=== PATIENT | female | born 1965 | race Caucasian/White ===

== ENCOUNTER → 2019-12-15 09:54 | Outpatient (BNVA) | payer MEDICAID, SELFPAY | PROVIDERS: Family Provider Family Medicine; PCP Family Medicine; Visit Provider Family Medicine | DX: J44.9 Chronic obstructive pulmonary disease, unspecified (principal); J06.9 Acute upper respiratory infection, unspecified; I10 Essential (primary) hypertension; J30.89 Other allergic rhinitis; E87.5 Hyperkalemia | CPT/HCPCS: 36415; 80048; 82652 ==

== ENCOUNTER → 2019-12-16 16:42 | Outpatient (BNVA) | payer MEDICAID, SELFPAY | PROVIDERS: Family Provider Family Medicine; PCP Family Medicine; Visit Provider Family Medicine | DX: E83.52 Hypercalcemia (principal) | CPT/HCPCS: 80048 ==

== ENCOUNTER → 2020-02-16 11:36 | Outpatient (BNVA) | payer MEDICAID, SELFPAY | PROVIDERS: Family Provider Family Medicine; PCP Family Medicine; Visit Provider Nurse Practitioner Family | DX: R07.81 Pleurodynia (principal) | CPT/HCPCS: 71046; 71047 ==

== ENCOUNTER → 2020-04-12 12:03 | Outpatient (BNVA) | payer MEDICAID, SELFPAY | PROVIDERS: Family Provider Family Medicine; PCP Family Medicine; Visit Provider Family Medicine | DX: J44.9 Chronic obstructive pulmonary disease, unspecified (principal); M54.16 Radiculopathy, lumbar region; G89.29 Other chronic pain; I10 Essential (primary) hypertension; E78.2 Mixed hyperlipidemia | CPT/HCPCS: 80048; 80061; 83721; 85025 ==

== ENCOUNTER → 2020-05-20 09:58 | Outpatient (BNVA) | payer MEDICAID, SELFPAY | PROVIDERS: Family Provider Family Medicine; PCP Family Medicine; Referring Provider Family Medicine; Visit Provider Family Medicine | DX: Z03.89 Encounter for observation for other suspected diseases and conditions ruled out (principal) | CPT/HCPCS: 82607; 83036; 84443 ==

== ENCOUNTER → 2020-06-07 08:57 | Outpatient (BNVA) | payer MEDICAID, SELFPAY | PROVIDERS: Family Provider Family Medicine; PCP Family Medicine; Visit Provider Family Medicine | DX: J44.1 Chronic obstructive pulmonary disease with (acute) exacerbation (principal); E11.9 Type 2 diabetes mellitus without complications | CPT/HCPCS: 71046 ==

== ENCOUNTER → 2020-09-06 11:59 | Outpatient (BNVA) | payer MEDICAID, SELFPAY | PROVIDERS: Family Provider Family Medicine; PCP Family Medicine; Visit Provider Nurse Practitioner Family | DX: Z20.828 Contact with and (suspected) exposure to other viral communicable diseases (principal) | CPT/HCPCS: 87400; 87635 ==

== ENCOUNTER → 2020-09-16 10:23 | Outpatient (BNVA) | payer MEDICAID, SELFPAY | PROVIDERS: Family Provider Family Medicine; PCP Family Medicine; Visit Provider Emergency Medicine | DX: Z11.59 Encounter for screening for other viral diseases (principal) | CPT/HCPCS: 87635 ==

== ENCOUNTER 2020-09-17 11:26 | Emergency (ER) | payer MEDICAID, SELFPAY ==
[2020-09-17 11:46] VITALS: BP 122/69; PULSE 81; RESP 18; TEMP 36.9; O2SAT 98; BMI 29.3
--- NOTE | 2020-09-17 12:29 | CTR_ITS ---
PROCEDURE INFORMATION: Exam: CT Neck With Contrast Exam date and time: 09/17/2020 1:24 PM Age: 54 years old Clinical indication: Pain; Other: Left side face / neck; Additional info: Left face swelling with feeling of swelling in throat TECHNIQUE: Imaging protocol: Computed tomography images of the neck with intravenous contrast. Radiation optimization: All CT scans at this facility use at least one of these dose optimization techniques: automated exposure control; mA and/or kV adjustment per patient size (includes targeted exams where dose is matched to clinical indication); or iterative reconstruction. Contrast material: OMNI 300; Contrast volume: 95 ml; Contrast route: INTRAVENOUS (IV); COMPARISON: CT Cervical Spine wo* [id number] 02/13/2019 6:21 PM RADIATION DOSE METRICS: Total DLP (mGy-cm): 650.56 FINDINGS: Paranasal sinuses: No fluid levels in the paranasal sinuses, minimal inflammatory change in the left maxillary sinus. Nasopharynx: Unremarkable. Oropharynx: Unremarkable. No significant tonsillar enlargement. Hypopharynx: Unremarkable. Larynx: Unremarkable. Normal epiglottis. Retropharyngeal space: Unremarkable. Submandibular/Parotid glands: Normal. Glands are normal in size. Thyroid: Normal. No enlarged or calcified nodules. Lymph nodes: No significant adenopathy. Trachea: Visualized trachea is unremarkable. Lungs: Minimal emphysematous change in the upper lungs. Bones/joints: Unremarkable. No acute fracture. Soft tissues: Left periorbital, facial and left scalp edema/inflammation, no subcutaneous air/gas. Fluid collection estimated at approximately 1 x 4 cm in the left frontal supraorbital region, smaller fluid collection is seen the soft tissues at the level of the lower portion of the left orbit CT/CT neck w con* [id number] IMPRESSION: Left periorbital/supraorbital abscess, cellulitis. Radiation Dose CTDIVOL = (mGy): DLP = 650.56 (mGy-cm)
--- NOTE | 2020-09-17 12:31 | W.ED.GENADLT ---
HPI - General Adult General: Chief complaint: General Medical Stated complaint: Face Swelling Time Seen by Provider: 09/17/20 12:02 History of Present Illness: HPI narrative: Patient is a 54-year-old female comes in the ED with left facial swelling. Patient says the swelling started yesterday. She was seen by PCP Alfredito Vázquez yesterday and diagnosed with herpes zoster of left side of face along with possible secondary cellulitis. Patient was given a prescription for valacyclovir and Bactrim. She says today her facial swelling is worse and her eyes swollen shut. She says that she feels pain and feels like there is something in her throat. Denies any shortness of breath or problems breathing. She says left side of face is very painful. She rates pain a 10 out of 10. Associated symptoms: Reports rash (Rash on left christian); Deny chest pain, dyspnea, headache(s), nausea, palpitations or vomiting Review of Systems Const: Denies: fever(s), chills or fatigue Eyes: Reports: other (Left periorbital swelling of upper and lower eyelid.); Denies: change in vision or eye discomfort ENMT: Reports: odynophagia (Patient says she feels some pain when she swallows and does have some pain as well.); Denies: throat pain, nasal discharge or nasal congestion Card: Denies: chest pain, palpitations, edema, swelling of feet/ankles, dyspnea on exertion or orthopnea Resp: Denies: dyspnea, productive cough or non-productive cough GI: Denies: abdominal pain, nausea, vomiting, diarrhea, constipation or hematochezia : Denies: flank pain, dysuria or hematuria Musc: Denies: neck pain, back pain or extremity swelling Skin/Breast: Reports: rash (Rash on left christian), pruritus and skin swelling (Left side of face especially periorbital region of left eye.) Neuro: Denies: headache(s), numbness in extremities or weakness in extremities [facility] PFSH: Medical History Acute depression Alcohol dependence, in remission Allergic rhinitis Bipolar disorder, current episode depressed, mild Borderline personality disorder Chronic pain Chronic post-traumatic stress disorder Chronic radicular low back pain COPD, mild Diabetes Essential hypertension GERD (gastroesophageal reflux disease) Mixed hyperlipidemia Surgical History H/O tubal ligation H/O: hysterectomy S/P cholecystectomy Family History Sister Hypertension Cancer Family/Other Cancer Social History Smoking and tobacco status: current every day smoker cigarettes Packs smoked per day: 1 Second hand smoke exposure: No Alcohol intake: current Alcohol intake frequency: holidays/special occasions only Physical Exam Const: COMMON NORMALS: patient oriented x3 and alert HENMT: COMMON NORMALS: normocephalic HEAD & SCALP: normocephalic MOUTH: Normal oral and palatal mucosa present THROAT: posterior oropharynx normal and uvula midline OTHER: Patient has a erythemic rash on left christian region of head. Eye: COMMON NORMALS: Equal, round and reactive pupils present and EOMs intact bilaterally EYELID: eyelid abnormality left upper eyelid swelling and tenderness and left lower eyelid swelling and tenderness PUPIL: Yes Equal, round and reactive pupils present SLIT LAMP EXAM: Yes slit lamp exam performed with fluorescein OTHER: Right eye has normal appearance. Left eye both upper and lower lids are swollen. After patient was given a dose of steroids her swelling of the left eye went down no was able to perform these fluorescein exam with lamp. Some dendritic lesions are seen upon fluorescein exam with lamp. Neck/C-Spine: COMMON NORMALS: supple GENERAL: Yes normal visual inspection Resp: COMMON NORMALS: normal respiratory effort, No retractions, No use of accessory muscles and clear to auscultation bilaterally AUSCULTATION: clear to auscultation bilaterally Cardio: COMMON NORMALS: regular rate, regular rhythm, S1 normal heart sound present, S2 normal heart sound present, No gallops present (Cardio), No clicks present (Cardio), No murmurs present (Cardio) and Peripheral pulses 2+ throughout RATE: regular rate RHYTHM: regular rhythm HEART SOUNDS: S1 normal heart sound present and S2 normal heart sound present PERIPHERAL PULSES: Peripheral pulses 2+ throughout GI: COMMON NORMALS: Normal to inspection, nondistended, normoactive bowel sounds present, Soft to palpation, non-tender and no masses PALPATION: Yes Soft to palpation : COMMON NORMALS: Yes no CVA tenderness BLADDER/KIDNEY EXAM: Yes no CVA tenderness Back/Pelvis: COMMON NORMALS: no CVA tenderness Extremity: COMMON NORMALS: normal to inspection Neuro: COMMON NORMALS: patient oriented x3 and moves all extremities SENSORIUM/ORIENTATION: Yes alert Skin: GENERAL SKIN EXAM: dry skin RASHES: rashes noted Left side of face Rash distribution: Yes dermatomal Rash color: Yes erythematous Rash surface: Yes dry and Yes warm Rash tenderness: Yes severe Rash findings consistent with: Yes herpes zoster Course Reevaluation(s): Reevaluation #1: After steroids were given patient's swelling of the left eye improved enough for me to perform a fluorescein exam with lamp. I was able to visualize some dendritic lesions on eye for exam. Patient also said that with her decreased swelling of left eye her pain improved greatly. Vital Signs: Vital signs: Vital Signs Temperature 98.5 F 09/17/20 11:46 Pulse Rate 77 09/17/20 16:26 Respiratory Rate 16 09/17/20 16:26 Blood Pressure 113/60 09/17/20 16:26 Pulse Oximetry 94 09/17/20 16:26 MDM - General Adult MDM Narrative: Medical decision making narrative: Patient is a 54-year-old female comes to the ED with left facial swelling. Patient was seen at her primary care doctor yesterday and was diagnosed with herpes zoster rash on left christian along with cellulitis. She was sent home with prescription for valacyclovir and Bactrim. She took first dose of both meds and woke up today and had periorbital swelling, and was instructed to come to the ED if she started having symptoms that involved the left eye. Exam showed patient with periorbital swelling of the left eye and upon arrival I was unable to examine left eyeball due to the swelling of the eyelids. Patient was then given a dose of steroids here in the ED and swelling improved enough for me to do fluorescein lamp exam. I was able to identify some dendritic lesions on the eye. I also ordered CT neck with contrast to check for any airway involvement because patient says she can feel something in her throat and has some pain when she swallows. CT findings showed left periorbital cellulitis. Patient diagnosed with cellulitis and herpes zoster with ocular involvement. She was told to continue taking her valacyclovir and Bactrim. I also prescribed for her some oral prednisone and steroid eyedrops. I told her to contact Dr. [facility] here in [place] on Sunday morning to set up an appointment for reevaluation. Return to ED precautions given. Patient understood and agree with plan. Lab Data: Attestation: I reviewed the patient's lab results. Labs: Lab Results 09/17/20 09/17/20 Range/Units 12:32 12:32 WBC 7.2 (4.0-10.0) 10^3/ uL RBC 4.62 (4.1-5.3) 10^6/u L Hgb 13.7 (11.5-15.3) g/dL Hct 42.4 (37.0-47.0) % MCV 91.8 (81-99) fL MCH 29.7 (28.0-34.0) pg MCHC 32.3 (30.0-36.0) g/dL RDW 12.0 L (12.1-15.1) % Plt Count 211 (130-400) 10^3/c mm MPV 9.8 (7.4-10.4) fL Neut % (Auto) 73.2 % Lymph % (Auto) 16.8 % Hayes % (Auto) 8.1 % Eos % (Auto) 1.5 % Baso % (Auto) 0.3 % Neut # (Auto) 5.27 (1.8-7.7) 10^3/u L Lymph # (Auto) 1.2 (0.8-4.8) 10^3/u L Hayes # (Auto) 0.6 (0.2-0.9) 10^3/u L Eos # (Auto) 0.1 (0.0-0.8) 10^3/u L Baso # (Auto) 0.0 (0.0-0.1) 10^3/u L Nucleated RBC % (a uto) 0 % Nucleated RBCs # 0.0 /100WBC Sodium 139 (136-145) mmol/L Potassium 4.3 (3.5-5.1) mmol/L Chloride 103 (98-107) mmol/L Carbon Dioxide 28 (22-29) mmol/L Anion Gap 12.3 (5-19) BUN 11 (6-20) mg/dL Creatinine 0.7 (0.5-0.9) mg/dL GFR Calculation 86.9 L (90-130) mL/min Glucose 112 (65-115) mg/dL Calculated Osmolal ity 288 (285-295) mOsm/k g Calcium 9.4 (8.5-10.5) mg/dL Total Bilirubin 0.2 (0.15-1.2) mg/dL AST 15 (0-32) U/L ALT 27 (0-33) U/L Alkaline Phosphata se 73 (35-105) IU/L Total Protein 6.8 (6.6-8.7) g/dL Albumin 4.1 (3.5-5.2) g/dL Globulin 2.7 (1.3-4.6) g/dL Imaging Data^: Other CT: Attestation: I personally reviewed and interpreted this imaging study as follows: Radiologist's impression: [address] [address] [address] Scan Report Signed Patient: Melvi Jeronimo Unit #: [id number] : 1965 Age/Sex: 54 / F ADM Date: 09/17/20 Loc: ER Room/Bed: Attending Dr: Ordering Provider/Ordering MD: Dilan Garcia Date of Service: 09/17/20 Procedure(s): CT neck w con* [id number] Accession Number(s): [id number] Report Number: [id number] PROCEDURE INFORMATION: Exam: CT Neck With Contrast Exam date and time: 09/17/2020 1:24 PM Age: 54 years old Clinical indication: Pain; Other: Left side face / neck; Additional info: Left face swelling with feeling of swelling in throat TECHNIQUE: Imaging protocol: Computed tomography images of the neck with intravenous contrast. Radiation optimization: All CT scans at this facility use at least one of these dose optimization techniques: automated exposure control; mA and/or kV adjustment per patient size (includes targeted exams where dose is matched to clinical indication); or iterative reconstruction. Contrast material: OMNI 300; Contrast volume: 95 ml; Contrast route: INTRAVENOUS (IV); COMPARISON: CT Cervical Spine wo* [id number] 02/13/2019 6:21 PM RADIATION DOSE METRICS: Total DLP (mGy-cm): 650.56 FINDINGS: Paranasal sinuses: No fluid levels in the paranasal sinuses, minimal inflammatory change in the left maxillary sinus. Nasopharynx: Unremarkable. Oropharynx: Unremarkable. No significant tonsillar enlargement. Hypopharynx: Unremarkable. Larynx: Unremarkable. Normal epiglottis. Retropharyngeal space: Unremarkable. Submandibular/Parotid glands: Normal. Glands are normal in size. Thyroid: Normal. No enlarged or calcified nodules. Lymph nodes: No significant adenopathy. Trachea: Visualized trachea is unremarkable. Lungs: Minimal emphysematous change in the upper lungs. Bones/joints: Unremarkable. No acute fracture. Soft tissues: Left periorbital, facial and left scalp edema/inflammation, no subcutaneous air/gas. Fluid collection estimated at approximately 1 x 4 cm in the left frontal supraorbital region, smaller fluid collection is seen the soft tissues at the level of the lower portion of the left orbit CT/CT neck w con* [id number] IMPRESSION: Left periorbital/supraorbital abscess, cellulitis. Radiation Dose CTDIVOL = (mGy): DLP = 650.56 (mGy-cm) Dictated By: Eron Keys MD Signed By: Eron Keys MD Signed Date/Time: 09/17/201457 DD/ 54 Discharge Plan Discharge Patient Disposition: Home Clinical Impression: Cellulitis Qualifiers: Site of cellulitis: face Qualified Code(s): L03.211 - Cellulitis of face Herpes zoster Qualifiers: Herpes zoster complications: with ocular involvement Herpes zoster ocular complication detail: keratitis Qualified Code(s): B02.33 - Zoster keratitis Condition: Stable Prescriptions: New loteprednol etabonate 0.5 % drops,suspension 2 drop ophthalmic (eye) QID Qty: 10 RF: 0 prednisone 50 mg tablet 50 mg PO DAILY 3 Days Qty: 3 RF: 0 No Action Combivent Respimat 20-100 mcg/actuation mist 1 puff INHALATION Q4H PRN (Reason: shortness of breath or wheezing) 30 Days Qty: 4 RF: 2 fluticasone propion-salmeterol [Advair Diskus] 250-50 mcg/dose blister with device 1 inh INHALATION BID 30 Days Qty: 60 RF: 2 cyclobenzaprine 10 mg tablet 10 mg PO TID PRN (Reason: muscle spasm) 30 Days Qty: 90 RF: 2 ipratropium-albuterol 0.5 mg-3 mg(2.5 mg base)/3 mL solution for nebulization 3 ml INHALATION QID PRN (Reason: wheezing) Qty: 180 RF: 2 metformin 500 mg tablet 500 mg PO DAILY 30 Days Qty: 30 RF: 2 All Day Allergy (cetirizine) 10 mg capsule 10 mg PO QDAY RF: 0 fluoxetine [Prozac] 20 mg capsule 80 mg PO DAILY Qty: 120 RF: 2 Vraylar 4.5 mg capsule 4.5 mg PO DAILY Qty: 30 RF: 2 gabapentin 600 mg tablet 600 mg PO TID Qty: 90 RF: 2 diazepam [Valium] 2 mg tablet 2 mg PO DAILY PRN (Reason: anxiety) Qty: 10 RF: 0 trazodone 100 mg tablet 200 mg PO QDAY Qty: 30 RF: 2 acetaminophen-codeine 300-30 mg tablet 1 tab PO Q4H PRN (Reason: pain) Qty: 14 RF: 0 valacyclovir 1 gram tablet 1,000 mg PO Q8H 10 Days Qty: 30 RF: 0 sulfamethoxazole-trimethoprim 800-160 mg tablet 1 tab PO BID 10 Days Qty: 20 RF: 0 hydrochlorothiazide 25 mg tablet See Rx Instructions .ROUTE .COMPLEX Qty: 30 RF: 0 furosemide 20 mg tablet See Rx Instructions .ROUTE .COMPLEX Qty: 30 RF: 0 fluticasone propionate 50 mcg/actuation spray,suspension See Rx Instructions .ROUTE .COMPLEX Qty: 16 RF: 0 albuterol sulfate [ProAir HFA] 90 mcg/actuation HFA aerosol inhaler See Rx Instructions .ROUTE .COMPLEX Qty: 8.5 RF: 0 meloxicam 7.5 mg tablet See Rx Instructions .ROUTE .COMPLEX Qty: 30 RF: 0 atorvastatin 40 mg tablet 40 mg PO QDAY Qty: 30 RF: 0 Discharge Orders: Discharge Order (Routine); Ordered 09/17/20 Ordered By: Dilan Garcia Referrals: Lucrecia Rivera MD [Primary Care Provider] - Discharge Diet: Regular Discharge Activity: Increase activity as tolerated Patient Instructions: Herpes Zoster (ED), Cellulitis (ED), Keratitis (ED) Activity Restrictions/Additional Instructions: Follow-up with medical provider as directed in 3-5 days. Take medications as prescribed. Continue taking your Bactrim and valacyclovir. Call [facility] Sunday Morning to set up an [phone]. return to the ER or your medical provider if condition worsens. Please read and understand discharge instructions. If any questions, please ask. Discharge Date/Time: 09/17/20 16:27 Coding Level of Care Code ED Quotation Clerk for Chg Fwd Exam Comprehensive
[2020-09-17 12:39] LABS: Basophils % 0.3 %; Eosinophils # 0.1 10^3/uL (0.0-0.8); Eosinophils % 1.5 %; Hematocrit 42.4 % (37.0-47.0); Hemoglobin 13.7 g/dL (11.5-15.3); Lymphocytes # 1.2 10^3/uL (0.8-4.8); Lymphocytes % 16.8 %; Mean Corpuscular HGB Conc 32.3 g/dL (30.0-36.0); Mean Corpuscular Hemoglobin 29.7 pg (28.0-34.0); Mean Corpuscular Volume 91.8 fL (81-99); Mean Platelet Volume 9.8 fL (7.4-10.4); Monocytes # 0.6 10^3/uL (0.2-0.9); Monocytes % 8.1 %; Neutrophils # 5.27 10^3/uL (1.8-7.7); Neutrophils % 73.2 %; Nucleated Red Blood Cells % 0 %; Platelet Count 211 10^3/cmm (130-400); Red Blood Count 4.62 10^6/uL (4.1-5.3); White Blood Count 7.2 10^3/uL (4.0-10.0)
[2020-09-17] MEDS: sodium chloride 0.9% 500 ML IV (12:42)
[2020-09-17 12:43] VITALS: RESP 20
[2020-09-17] MEDS: morphine 4 mg/mL SDV 1 mL 2 MG IVP (12:43)
[2020-09-17] MEDS: ondansetron 2 mg/ML SDV 2 mL 4 MG IVP (12:48)
[2020-09-17 13:01] LABS: Alanine Aminotransferase 27 U/L (0-33); Albumin Level 4.1 g/dL (3.5-5.2); Alkaline Phosphatase 73 IU/L (35-105); Anion Gap 12.3 (5-19); Aspartate Amino Transferase 15 U/L (0-32); Blood Urea Nitrogen 11 mg/dL (6-20); Calcium 9.4 mg/dL (8.5-10.5); Carbon Dioxide 28 mmol/L (22-29); Chloride 103 mmol/L (98-107); Globulin 2.7 g/dL (1.3-4.6); Glomerular Filtration Rate 86.9 mL/min (90-130); Glucose 112 mg/dL (65-115); Osmolality Calculated 288 mOsm/kg (285-295); Potassium 4.3 mmol/L (3.5-5.1); Sodium 139 mmol/L (136-145); Total Bilirubin 0.2 mg/dL (0.15-1.2); Total Protein 6.8 g/dL (6.6-8.7)
--- NOTE | 2020-09-17 13:09 | PC.NURSE ---
Pt sts she feels like the swelling is starting to improve in her eye and her pain is better. Notable decrease in swelling to eye, able to visualize eyelashes now although pt still can't open it.
[2020-09-17] MEDS: iohexol 300 mg/mL 100 mL Btl IV (14:17)
[2020-09-17 15:00] VITALS: BP 114/45; PULSE 76; RESP 16; O2SAT 92
--- NOTE | 2020-09-17 15:01 | PC.NURSE ---
Pt sts she is feeling much better, continued improvement in swelling to L-eye, she is able to partially open it independently now. Pt reports no needs at this time, vss, will continue to monitor.
[2020-09-17] MEDS: fluorescein 1 mg Strip EYE-LEFT (16:12)
[2020-09-17] MEDS: eye irrigation 30 mL Btl EYE-LEFT (16:12)
[2020-09-17 16:26] VITALS: BP 113/60; PULSE 77; RESP 16; O2SAT 94
== END 2020-09-17 16:27 | disposition home or self-care (01) ==
PROVIDERS: Emergency Provider Physician Assistant; PCP Family Medicine
DX: L03.211 Cellulitis of face (principal); B02.33 Zoster keratitis; Z79.84 Long term (current) use of oral hypoglycemic drugs; J44.9 Chronic obstructive pulmonary disease, unspecified; E11.9 Type 2 diabetes mellitus without complications; I10 Essential (primary) hypertension; E78.2 Mixed hyperlipidemia; F17.210 Nicotine dependence, cigarettes, uncomplicated
CPT/HCPCS: 12345; 70491; 80053; 85025; 96361; 96374; 96375; 99282; 99283; J2270; J2405; J2930; J7040; Q9967

== ENCOUNTER 2020-11-09 09:37 | Outpatient (CLI) | payer MEDICAID, SELFPAY ==
--- NOTE | 2020-11-09 11:00 | USCV_ITS ---
Melvi Jeronimo Age: 54 Gender: F : 1965 Exam Date: 11/09/2020 10:48 Ordering Phys: Lucrecia Rivera MD Technologist: Kathie Castillo Exam Location: [facility] – [place] Indication: htn BP: / HR: 69 Rhythm: Sinus Technical Quality: Adequate MEASUREMENTS (Male / Female) Normal Values 2D ECHO LV Diastolic Diameter PLAX 3.2 cm 4.2 - 5.9 / 3.9 - 5.3 cm LV Systolic Diameter PLAX 1.6 cm LV Chamber Size 2.8 cm IVS Diastolic Thickness 1.1 cm 0.6 - 1.0 / 0.6 - 0.9 cm IVS Systolic Thickness 1.7 cm LVPW Diastolic Thickness 1.5 cm 0.6 - 1.0 / 0.6 - 0.9 cm LVPW Systolic Thickness 2.0 cm RV Chamber Size 2.1 cm LVOT Diameter 2.0 cm LV Ejection Fraction 2D Teich 83.9 % LV Ejection Fraction MOD 2C 70.7 % LV Ejection Fraction 2C AL 70.7 % LA Diameter 3.1 cm LA Width 3.0 cm LA Height 4.2 cm RA Width 2.2 cm RA Height 3.5 cm Aorta at Sinotubular Diameter 2.5 cm M-MODE LV Diastolic Diameter MM 4.4 cm 4.2 - 5.9 / 3.9 - 5.3 cm LV Systolic Diameter MM 2.4 cm LV Ejection Fraction MM Teich 76.4 % IVS Diastolic Thickness MM 0.9 cm 0.6 - 1.0 / 0.6 - 0.9 cm IVS Systolic Thickness MM 1.3 cm LVPW Diastolic Thickness MM 1.0 cm 0.6 - 1.0 / 0.6 - 0.9 cm LVPW Systolic Thickness MM 1.4 cm Aortic Annulus Diameter 3.1 cm LA Ao Ratio MM 1.2 MV E Point Septal Separation 0.6 cm DOPPLER AV Peak Velocity 141.0 cm/s LVOT Peak Velocity 112.0 cm/s AV Area Cont Eq vti 3.2 cm squared AV Area Cont Eq pk 2.6 cm squared MV Area PHT 2.9 cm squared Mitral E to A Ratio 0.7 MV E' Velocity 34.5 cm/s Mitral E to MV E' Ratio 6.1 Mitral E to LV E' Lateral Ratio 6.6 Mitral E to LV E' Septal Ratio 5.7 TR Peak Velocity 169.8 cm/s TR Peak Gradient 11.5 mmHg TV Peak E Velocity 56.0 cm/s Right Atrial Pressure 3.0 mmHg Pulmonary Artery Systolic Pressu 14.5 mmHg PV Peak Velocity 81.0 cm/s RV Acceleration Time 0.2 s RV Ejection Time 0.4 s RV AcT/ET 0.5 FINDINGS Left Ventricle Normal left ventricular size and systolic function, EF 62 %. No regional wall motion abnormalities. Some features of left ventricular grade 1 diastolic dysfunction Right Ventricle The right ventricle is normal in size and function. Right Atrium The right atrium is normal in size. Left Atrium The left atrium is normal in size. Mitral Valve No gross abnormalities noted Aortic Valve Thickened aortic valve. Tricuspid Valve No gross abnormalities noted Pulmonic Valve No gross abnormalities noted Pericardium Normal pericardium without effusion. Aorta Normal ascending aorta dimension. CONCLUSIONS Normal left ventricular size and systolic function, EF 62 %. No regional wall motion abnormalities. Some features of left ventricular grade 1 diastolic dysfunction. Thickened aortic valve. There is no pericardial effusion. There are no intracardiac masses. No previous study is available for comparison. Dr Loy Phelps MD FACC (Electronically Signed) Final Date: 09 November 2020 17:54 S
== END 2020-11-09 09:38 | disposition home or self-care (01) ==
LOC: RAD 09:40
PROVIDERS: PCP Family Medicine; Visit Provider Family Medicine
DX: I10 Essential (primary) hypertension (principal); R07.9 Chest pain, unspecified; I35.8 Other nonrheumatic aortic valve disorders
CPT/HCPCS: 93306

== ENCOUNTER → 2020-12-07 12:42 | Outpatient (BNVA) | payer MEDICAID, SELFPAY | PROVIDERS: PCP Family Medicine; Visit Provider Family Medicine | DX: I50.32 Chronic diastolic (congestive) heart failure (principal); J44.9 Chronic obstructive pulmonary disease, unspecified; E78.2 Mixed hyperlipidemia; M54.16 Radiculopathy, lumbar region; G89.29 Other chronic pain; E11.9 Type 2 diabetes mellitus without complications; I11.0 Hypertensive heart disease with heart failure | CPT/HCPCS: 80053; 80061; 83036; 83880; 85025 ==

== ENCOUNTER → 2021-03-23 15:08 | Outpatient (BNVA) | payer MEDICAID, SELFPAY | PROVIDERS: PCP Family Medicine; Visit Provider Family Medicine | DX: J44.9 Chronic obstructive pulmonary disease, unspecified (principal); E11.9 Type 2 diabetes mellitus without complications; I11.0 Hypertensive heart disease with heart failure; I50.32 Chronic diastolic (congestive) heart failure | CPT/HCPCS: 71046 ==

== ENCOUNTER → 2021-03-27 14:08 | Outpatient (BNVA) | payer MEDICAID, SELFPAY | PROVIDERS: PCP Family Medicine; Referring Provider Family Medicine; Visit Provider Family Medicine | DX: I50.32 Chronic diastolic (congestive) heart failure (principal); E11.9 Type 2 diabetes mellitus without complications; J44.9 Chronic obstructive pulmonary disease, unspecified | CPT/HCPCS: 80053; 83036; 85025 ==

== ENCOUNTER → 2021-04-14 13:54 | Outpatient (BNVA) | payer MEDICAID, SELFPAY | PROVIDERS: PCP Family Medicine; Referring Provider Family Medicine; Visit Provider Family Medicine | DX: I50.32 Chronic diastolic (congestive) heart failure (principal) | CPT/HCPCS: 80048 ==

== ENCOUNTER → 2021-05-12 08:54 | Outpatient (BNVA) | payer MEDICAID, SELFPAY | PROVIDERS: PCP Family Medicine; Visit Provider Family Medicine | DX: E87.6 Hypokalemia (principal); I50.32 Chronic diastolic (congestive) heart failure; M25.571 Pain in right ankle and joints of right foot; M25.572 Pain in left ankle and joints of left foot | CPT/HCPCS: 73610; 80048; 85651; 86140 ==

== ENCOUNTER → 2021-08-23 14:36 | Outpatient (BNVA) | payer MEDICAID, SELFPAY | PROVIDERS: PCP Family Medicine; Referring Provider Family Medicine; Visit Provider Orthopaedic Surgery | DX: M21.612 Bunion of left foot (principal); M21.611 Bunion of right foot | CPT/HCPCS: 73560; 73565; 77077 ==

== ENCOUNTER → 2021-09-13 10:43 | Outpatient (BNVA) | payer MEDICAID, SELFPAY | PROVIDERS: PCP Family Medicine; Visit Provider Family Medicine | DX: J41.0 Simple chronic bronchitis (principal); E11.9 Type 2 diabetes mellitus without complications; E78.2 Mixed hyperlipidemia; I50.32 Chronic diastolic (congestive) heart failure; Z28.21 Immunization not carried out because of patient refusal; M54.16 Radiculopathy, lumbar region; G89.29 Other chronic pain; I11.0 Hypertensive heart disease with heart failure | CPT/HCPCS: 80053; 80061; 83036 ==

== ENCOUNTER → 2022-03-06 10:47 | Outpatient (BNVA) | payer MEDICAID, SELFPAY | PROVIDERS: PCP Family Medicine; Visit Provider Family Medicine | DX: S99.911A Unspecified injury of right ankle, initial encounter (principal); E11.9 Type 2 diabetes mellitus without complications; I10 Essential (primary) hypertension; J44.9 Chronic obstructive pulmonary disease, unspecified; X58.XXXA Exposure to other specified factors, initial encounter | CPT/HCPCS: 73610; 80053; 83036; 85025 ==

== ENCOUNTER → 2022-04-03 07:41 | Outpatient (BNVA) | payer MEDICAID, SELFPAY | PROVIDERS: PCP Family Medicine; Visit Provider Podiatrist Foot & Ankle Surgery | DX: L85.1 Acquired keratosis [keratoderma] palmaris et plantaris (principal); M21.629 Bunionette of unspecified foot; M20.41 Other hammer toe(s) (acquired), right foot; M20.42 Other hammer toe(s) (acquired), left foot; E11.40 Type 2 diabetes mellitus with diabetic neuropathy, unspecified; M21.41 Flat foot [pes planus] (acquired), right foot; M21.42 Flat foot [pes planus] (acquired), left foot; L84 Corns and callosities; F17.210 Nicotine dependence, cigarettes, uncomplicated | CPT/HCPCS: 11057; 11721; 17110 ==

== ENCOUNTER → 2022-05-24 11:41 | Outpatient (BNVA) | payer MEDICARE, MEDICAID, SELFPAY | PROVIDERS: PCP Family Medicine; Visit Provider Registered Nurse | DX: G47.10 Hypersomnia, unspecified (principal); F41.9 Anxiety disorder, unspecified; R53.83 Other fatigue | CPT/HCPCS: 80053; 82306; 82607; 84443 ==

== ENCOUNTER → 2022-08-22 10:10 | Outpatient (BNVA) | payer MEDICARE, MEDICAID, SELFPAY | PROVIDERS: PCP Family Medicine; Visit Provider Family Medicine | DX: E11.9 Type 2 diabetes mellitus without complications (principal); I50.9 Heart failure, unspecified; I50.32 Chronic diastolic (congestive) heart failure; J30.89 Other allergic rhinitis; J44.9 Chronic obstructive pulmonary disease, unspecified; E78.2 Mixed hyperlipidemia; J44.1 Chronic obstructive pulmonary disease with (acute) exacerbation; I10 Essential (primary) hypertension | CPT/HCPCS: 80053; 80061; 83036; 83735; 85025 ==

== ENCOUNTER → 2022-08-30 15:00 | Outpatient (BNVA) | payer MEDICARE, MEDICAID, SELFPAY | PROVIDERS: PCP Family Medicine; Visit Provider Family Medicine | DX: R30.0 Dysuria (principal); B37.31 Acute candidiasis of vulva and vagina; J44.1 Chronic obstructive pulmonary disease with (acute) exacerbation; J41.0 Simple chronic bronchitis | CPT/HCPCS: 81000 ==

== ENCOUNTER 2022-10-18 13:04 | Outpatient (CLI) | payer MEDICARE, MEDICAID, SELFPAY | END 2022-10-18 13:05 | disposition home or self-care (01) | LOC: RAD 13:04 | PROVIDERS: PCP Family Medicine; Visit Provider Family Medicine | DX: R41.0 Disorientation, unspecified (principal) | CPT/HCPCS: 80053; 80307; 81000; 85025 ==

== ENCOUNTER → 2022-12-29 12:38 | Outpatient (BNVA) | payer MEDICARE, MEDICAID, SELFPAY | PROVIDERS: PCP Family Medicine; Visit Provider Emergency Medicine | DX: S52.611A Displaced fracture of right ulna styloid process, initial encounter for closed fracture (principal); X58.XXXA Exposure to other specified factors, initial encounter | CPT/HCPCS: 73110 ==

== ENCOUNTER → 2023-01-08 08:58 | Outpatient (BNVA) | payer MEDICARE, MEDICAID, SELFPAY | PROVIDERS: PCP Family Medicine; Visit Provider Family Medicine | DX: E11.9 Type 2 diabetes mellitus without complications (principal); B37.31 Acute candidiasis of vulva and vagina; J44.9 Chronic obstructive pulmonary disease, unspecified; I10 Essential (primary) hypertension; R30.0 Dysuria; I63.9 Cerebral infarction, unspecified; Z12.31 Encounter for screening mammogram for malignant neoplasm of breast | CPT/HCPCS: 80048; 81000; 83036; 87077; 87086; 87184 ==

== ENCOUNTER 2023-01-12 15:03 | Outpatient (CLI) | payer MEDICARE, MEDICAID, SELFPAY ==
--- NOTE | 2023-01-12 15:50 | MM_ITS ---
WS: [id number] BILATERAL 3D TOMOSYNTHESIS DIGITAL SCREENING MAMMOGRAPHY WITH CAD CLINICAL INFORMATION: SCREEN HISTORY: Screening mammogram. RIGHT breast pain COMPARISON: 2019 TECHNIQUE: Bilateral CC and MLO views. FINDINGS: Scattered fibroglandular densities bilaterally. No suspicious mass, asymmetry, calcifications, or arc hitectural distortion. No evidence of malignancy. A few incidental punctate calcifications. MM/[place] [id number] IMPRESSION: BI-RADS: 2-Benign FOLLOW UP: 1 Year Follow-up Recommend return to annual screening mammography.
== END 2023-01-12 15:04 | disposition home or self-care (01) ==
LOC: RAD 15:22
PROVIDERS: PCP Family Medicine; Visit Provider Family Medicine
DX: Z12.31 Encounter for screening mammogram for malignant neoplasm of breast (principal)
CPT/HCPCS: 77063; 77067

== ENCOUNTER → 2023-02-19 08:37 | Outpatient (BNVA) | payer MEDICARE, MEDICAID, SELFPAY | PROVIDERS: PCP Family Medicine; Visit Provider Family Medicine | DX: Z01.419 Encounter for gynecological examination (general) (routine) without abnormal findings (principal); M54.16 Radiculopathy, lumbar region; G89.29 Other chronic pain; F41.0 Panic disorder [episodic paroxysmal anxiety]; F43.0 Acute stress reaction; R30.0 Dysuria; Z20.2 Contact with and (suspected) exposure to infections with a predominantly sexual mode of transmission; Z11.3 Encounter for screening for infections with a predominantly sexual mode of transmission; M62.838 Other muscle spasm | CPT/HCPCS: 17110; 81000; 87077; 87086; 87184; 87491; 87591; 87661 ==

== ENCOUNTER → 2023-03-19 09:01 | Outpatient (BNVA) | payer MEDICARE, MEDICAID, SELFPAY ==
[2023-03-08 15:10] VITALS: BP 125/67; BMI 26.6
== END ==
PROVIDERS: PCP Family Medicine; Visit Provider Family Medicine
DX: J98.8 Other specified respiratory disorders (principal); B97.89 Other viral agents as the cause of diseases classified elsewhere
CPT/HCPCS: 87400; 87426

== ENCOUNTER → 2023-07-16 14:03 | Outpatient (BNVA) | payer MEDICARE, MEDICAID, SELFPAY ==
[2023-03-08 15:10] VITALS: BP 125/67; BMI 26.6
== END ==
PROVIDERS: PCP Family Medicine; Visit Provider Family Medicine
DX: M79.661 Pain in right lower leg (principal); Z86.718 Personal history of other venous thrombosis and embolism; E78.2 Mixed hyperlipidemia; J44.9 Chronic obstructive pulmonary disease, unspecified; J41.0 Simple chronic bronchitis; J30.89 Other allergic rhinitis; I50.32 Chronic diastolic (congestive) heart failure; E11.9 Type 2 diabetes mellitus without complications; I50.9 Heart failure, unspecified; M54.16 Radiculopathy, lumbar region; G89.29 Other chronic pain; I10 Essential (primary) hypertension; J30.9 Allergic rhinitis, unspecified; M79.89 Other specified soft tissue disorders; E87.6 Hypokalemia; F31.31 Bipolar disorder, current episode depressed, mild; H65.193 Other acute nonsuppurative otitis media, bilateral; Z91.199 Patient's noncompliance with other medical treatment and regimen due to unspecified reason
CPT/HCPCS: 80053; 80061; 83036; 85025

== ENCOUNTER 2023-07-23 16:40 | Outpatient (CLI) | payer MEDICARE, MEDICAID, SELFPAY ==
[2023-03-08 15:10] VITALS: BP 125/67; BMI 26.6
--- NOTE | 2023-07-23 17:00 | USR_ITS ---
PROCEDURE INFORMATION: Exam: US Duplex Right Lower Extremity Veins, Limited Exam date and time: 07/23/2023 5:07 PM Age: 57 years old Clinical indication: Pain; Leg, lower; Right; Additional info: M79.661 - pain in right lower leg, no auth needed for this imaging. . TECHNIQUE: Imaging protocol: Real-time duplex ultrasound of the right extremity with 2-D hammond scale, color Doppler flow and spectral waveform analysis including responses to compression and other maneuvers (when performed) with image documentation. Limited exam was focused on the right lower extremity veins. COMPARISON: CR XR ankle RT min 3V* [id number] 03/06/2022 11:00 AM FINDINGS: Thrombus is seen in the femoral vein proximally and distally. Remaining visualized deep veins are normal. Greater saphenous common femoral junction [place]. US/[place] [id number] IMPRESSION: Deep venous thrombosis in the femoral vein. THIS REPORT CONTAINS FINDINGS THAT MAY BE CRITICAL TO PATIENT CARE. The findings were verbally communicated via telephone conference with KIM Barillas at 5:59 PM CDT on 07/23/2023. The findings were acknowledged and understood.
== END 2023-07-23 16:41 | disposition home or self-care (01) ==
PROVIDERS: PCP Family Medicine; Visit Provider Family Medicine
DX: I82.411 Acute embolism and thrombosis of right femoral vein (principal); M79.661 Pain in right lower leg; M79.89 Other specified soft tissue disorders; Z86.718 Personal history of other venous thrombosis and embolism
CPT/HCPCS: 93971

== ENCOUNTER 2023-09-20 13:40 | Emergency (ER) | payer MEDICARE, MEDICAID, SELFPAY ==
[2023-09-18 16:41] VITALS: BP 129/71; BMI 29.8
[2023-09-20 15:20] VITALS: BP 132/55; PULSE 76; RESP 17; O2SAT 98
[2023-09-20 15:21] LABS: Basophils % 0.4 %; Eosinophils # 0.1 10^3/uL (0.0-0.8); Hematocrit 44.4 % (36-47); Lymphocytes # 2.1 10^3/uL (0.8-4.8); Mean Corpuscular HGB Conc 33.1 g/dL (30-55); Mean Corpuscular Hemoglobin 29.7 pg (27-33); Mean Corpuscular Volume 89.7 fl (85-98); Mean Platelet Volume 9.5 fL (7.4-10.4); Monocytes # 0.5 10^3/uL (0.2-0.9); Monocytes % 9.1 %; Neutrophils % 49.1 %; Nucleated Red Blood Cells % 0 %; Platelet Count 207 10^3/cmm (157-399); Red Blood Count 4.95 10^6/uL (3.85-5.65); Red Cell Distribution Width 12.7 % (12.1-15.1); White Blood Count 5.49 10^3/uL (3.29-11.43)
--- NOTE | 2023-09-20 15:32 | XR_ITS ---
WS: [id number] Exam: XR chest 1V portable [id number] Date/Time of Exam: 09/20/2023 3:32 PM Reason For Exam: sob Comparison 06/03/2021. Findings: The lungs are clear and fully expanded. Costophrenic angles are sharp. No infiltrates. Bronchovascula r relief appears normal. Cardiac silhouette is unremarkable. Bony elements are intact. IMPRESSION: Unremarkable chest radiograph.
--- NOTE | 2023-09-20 15:35 | ED_ITS ---
HPI - General Adult General: Chief complaint: General Medical Stated complaint: possible blood clot, right lower leg Time Seen by Provider: 09/20/23 14:56 PFSH ED PFSH: Medical History Acute depression Alcohol dependence, in remission Alcohol use disorder Allergic rhinitis Benzodiazepine use agreement exists Bipolar 1 disorder Bipolar 1 disorder, depressed, severe Bipolar disorder, current episode depressed, mild Borderline personality disorder Chronic pain Chronic post-traumatic stress disorder Chronic radicular low back pain COPD, mild Diabetes Diastolic CHF, chronic Essential hypertension Generalized anxiety disorder GERD (gastroesophageal reflux disease) Homelessness Insomnia Mixed hyperlipidemia Psychiatric care Psychiatric care Surgical History H/O tubal ligation H/O varicose vein stripping RLE H/O: hysterectomy S/P cholecystectomy Family History Sister Hypertension Cancer Family/Other Cancer Other Bipolar disorder, current episode depressed, mild Borderline personality disorder Chronic post-traumatic stress disorder Social History (Updated 09/05/23 @ 11:19 by Ayla Pena RN) Smoking and tobacco/nicotine status: current every day tobacco/nicotine user cigarettes Packs smoked per day: 10 Years cigarettes smoked: 42 and e-cigarettes E-Cigarette Details: e-cigarette and with nicotine E-cig/vape details: 5000 v apes last about 2 months Quit status (tobacco/nicotine): considering quitting Second hand smoke exposure: Yes Alcohol intake: former Year of sobriety/quit date alcohol: 2018 Substance/Drug Use: current Substance/Drug use frequency: daily Other substance/drug use details: on supervised probation since 08.14.23 Adopted: No Caregiver/support person: No Lives independently: Yes Household members: other Details: Ex Housing: Apartment Marital status: Marital status details: but currently living with ex Number of children: 4 Number of grandchildren: 13 Highest education level completed: Associate Degree: Occupational, Technical, Vocational Program 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 service: No Current occupational status: disabled Current occupational exposures/hazards: No Pets and animals: Yes Pets & animals: dog(s) Leisure activites: music and other Leisure activities details: walk, spend time with grandkids Sexually active: No Do you think of yourself as: Straight/Heterosexual Current gender identity: Female Ana/Congregation: [employer] Special ana needs: No Agree to transfusion: Yes Female Reproductive History: Para: 4 Spontaneous abortions: No Course Vital Signs: Vital signs: Vital Signs Pulse Rate 76 09/20/23 15:20 Respiratory Rate 17 09/20/23 15:20 Blood Pressure 132/55 09/20/23 15:20 Pulse Oximetry 98 09/20/23 15:20 Oxygen Delivery Me thod Room Air 09/20/23 15:20 MDM - General Adult Lab Data 09/20/23 15:12 09/20/23 15:12 Laboratory Results WBC 5.49 10^3/uL (3.29-11.43) 09/20/23 15:12 RBC 4.95 10^6/uL (3.85-5.65) 09/20/23 15:12 Hgb 14.70 g/dL (11.27-16.99) 09/20/23 15:12 Hct 44.4 % (36-47) 09/20/23 15:12 MCV 89.7 fl (85-98) 09/20/23 15:12 MCH 29.7 pg (27-33) 09/20/23 15:12 MCHC 33.1 g/dL (30-55) 09/20/23 15:12 RDW 12.7 % (12.1-15.1) 09/20/23 15:12 Plt Count 207 10^3/cmm (157-399) 09/20/23 15:12 MPV 9.5 fL (7.4-10.4) 09/20/23 15:12 Neut % (Auto) 49.1 % 09/20/23 15:12 Lymph % (Auto) 39.0 % 09/20/23 15:12 [place] % (Auto) 9.1 % 09/20/23 15:12 Eos % (Auto) 2.0 % 09/20/23 15:12 Baso % (Auto) 0.4 % 09/20/23 15:12 Neut # (Auto) 2.70 10^3/uL (1.8-7.7) 09/20/23 15:12 Lymph # (Auto) 2.1 10^3/uL (0.8-4.8) 09/20/23 15:12 [place]et # (Auto) 0.5 10^3/uL (0.2-0.9) 09/20/23 15:12 Eos # (Auto) 0.1 10^3/uL (0.0-0.8) 09/20/23 15:12 Baso # (Auto) 0.0 10^3/uL (0.0-0.1) 09/20/23 15:12 Nucleated RBC % (auto) 0 % 09/20/23 15:12 Nucleated RBCs # 0.0 /100WBC 09/20/23 15:12 Discharge Plan Discharge Condition: Stable Prescriptions: No Action (DME) Custom molded orthotics See Rx Instructions .Route .MEDSUPPLY Qty: 1 0RF Rx Instructions: As directed guaifenesin 600 mg tablet extended release 12hr 600 mg PO Q12H PRN (Reason: congestion) Qty: 60 2RF atorvastatin 40 mg tablet 40 mg PO DAILY 90 Days Qty: 90 1RF budesonide-formoterol [Symbicort] 160-4.5 mcg/actuation HFA aerosol inhaler 2 puff inhalation BID 30 Days Qty: 10.2 5RF All Day Allergy (cetirizine) 10 mg capsule 10 mg PO QDAY 90 Days Qty: 90 1RF furosemide 20 mg tablet 20 mg PO QAM 90 Days Qty: 90 1RF Combivent Respimat 20-100 mcg/actuation mist See Rx Instructions .ROUTE .COMPLEX Qty: 4 5RF Dose Instruction: TAKE ONE INHALATION BY MOUTH EVERY 4 HOURS NEEDED SHORTNESS OF BREATH OR WHEEZING Rx Instructions: TAKE ONE INHALATION BY MOUTH EVERY 4 HOURS metformin 500 mg tablet 500 mg PO BID 90 Days Qty: 180 1RF potassium chloride 10 mEq tablet extended release 10 meq PO DAILY 90 Days Qty: 90 1RF tizanidine 4 mg tablet 4 mg PO TID PRN (Reason: muscle spasticity) 30 Days Qty: 90 2RF Hold Instructions: Home Medication placed on hold at Doctor's office Spiriva Respimat 1.25 mcg/actuation mist 2 puff inhalation DAILY Qty: 4 5RF fluticasone propionate 50 mcg/actuation spray,suspension 1 spray intranasal Q12H Qty: 15.8 5RF Rx Instructions: administer into each nostril Eliquis 5 mg tablet 10 mg PO BID Qty: 60 2RF Rx Instructions: 2 tabs BID for 7 days, then change to 1 tab BID acetaminophen-codeine 300-30 mg tablet 1 tab PO DAILY PRN (Reason: pain) 7 Days Qty: 7 0RF Eliquis DVT-PE Treat 30D Start 5 mg (74 tabs) tablets,dose pack 5 mg PO BID Qty: 74 0RF risperidone 120 mg suspension,extended rel syring 120 mg SUBCUT .every 4 weeks Qty: 1 0RF risperidone [Risperdal] 1 mg tablet 1 mg PO BID Qty: 60 2RF hydroxyzine pamoate [Vistaril] 25 mg capsule 25 mg PO TID PRN (Reason: anxiety) Qty: 90 2RF mirtazapine 45 mg tablet,disintegrating 45 mg PO .at bedtime Qty: 30 2RF Hold Instructions: excess sleepiness fluoxetine 40 mg capsule 80 mg PO DAILY Qty: 60 2RF ibuprofen 600 mg tablet 600 mg PO TID PRN (Reason: pain) Qty: 90 0RF gabapentin 600 mg tablet 600 mg PO BID Qty: 60 2RF albuterol sulfate [Ventolin HFA] 90 mcg/actuation HFA aerosol inhaler See Rx Instructions .ROUTE .COMPLEX Qty: 8.5 0RF Dose Instruction: INHALE TWO PUFFS BY MOUTH EVERY 6 HOURS NEEDED FOR SHORTNESS OF BREATH Rx Instructions: INHALE TWO PUFFS BY MOUTH EVERY 6 HOURS Referrals: Lucrecia Rivera MD [Primary Care Provider] - Coding Level of Care Code ED [facility] for Ketty Clark
--- NOTE | 2023-09-20 15:36 | W.ED.EXTPRO ---
Documented by User: VICKEY Serrato 09/20/23 16:23 HPI - Extremity Problem General: Chief complaint: General Medical Stated complaint: possible blood clot, right lower leg Time Seen by Provider: 09/20/23 14:56 Source: patient Mode of arrival: ambulatory Limitations: no limitations History of Present Illness: Patient is a 57-year-old female who presents to ED today with complaint of swelling to her right calf and burning. She states she is currently residing at [facility] and they sent her over here for further evaluation of a possible DVT. Patient tells me she has a known DVT to that leg that was diagnosed in June. Looking at ultrasound report it looks like there was thrombus seen in her proximal and distal femoral vein. Patient states she has been taking her Eliquis as prescribed and has not missed any doses of this. When asked about chest pain or shortness of breath patient tells me that she does feel mildly short of breath although states she thinks this is secondary to her not having her albuterol as [facility] has not been giving her this medication because she took it out of the unopened box herself. She continues to smoke daily. Denies chest pain. MD Complaint: extremity pain and extremity swelling Onset (ago): day(s) Pain Consistency: constant Location: right and lower extremity Quality: burning Radiation: none Relieving factors: nothing Exacerbating factors: weight bearing and walking Associated symptoms: Reports no associated symptoms; Deny chest pain, fever(s) or rash Context: history of DVT Review of Systems Const: Denies: fever(s), chills, body aches, fatigue or malaise ENMT: Denies: throat pain, odynophagia, nasal discharge, nasal congestion or sinus pain Card: Denies: chest pain, palpitations, irregular heart rhythm, edema, lightheadedness, syncope, pre-syncope, dyspnea on exertion, orthopnea, leg pain with exertion or acrocyanosis Resp: Reports: dyspnea and wheezing; Denies: productive cough, non-productive cough, stridor, pain on inspiration, change in phlegm color, hemoptysis or chest congestion GI: Denies: abdominal pain Musc: Reports: extremity pain and extremity swelling; Denies: neck pain, back pain, joint pain, joint swelling, joint redness, joint stiffness, limited range of motion, muscle cramps or muscle weakness Skin/Breast: Denies: rash Neuro: Denies: headache(s), numbness in extremities, weakness in extremities, sensory changes or dizziness PFSH ED PFSH: Medical History Acute depression Alcohol dependence, in remission Alcohol use disorder Allergic rhinitis Benzodiazepine use agreement exists Bipolar 1 disorder Bipolar 1 disorder, depressed, severe Bipolar disorder, current episode depressed, mild Borderline personality disorder Chronic pain Chronic post-traumatic stress disorder Chronic radicular low back pain COPD, mild Diabetes Diastolic CHF, chronic Essential hypertension Generalized anxiety disorder GERD (gastroesophageal reflux disease) Homelessness Insomnia Mixed hyperlipidemia Psychiatric care Psychiatric care Surgical History H/O tubal ligation H/O varicose vein stripping RLE H/O: hysterectomy S/P cholecystectomy Family History Sister Hypertension Cancer Family/Other Cancer Other Bipolar disorder, current episode depressed, mild Borderline personality disorder Chronic post-traumatic stress disorder Social History Smoking and tobacco/nicotine status: current every day tobacco/nicotine user cigarettes Packs smoked per day: 10 Years cigarettes smoked: 42 and e-cigarettes E-Cigarette Details: e-cigarette and with nicotine E-cig/vape details: 5000 vapes last about 2 months Quit status (tobacco/nicotine): considering quitting Second hand smoke exposure: Yes Alcohol intake: former Year of sobriety/quit date alcohol: 2018 Substance/Drug Use: current Substance/Drug use frequency: daily Other substance/drug use details: on supervised probation since 08.14.23 Adopted: No Caregiver/support person: No Lives independently: Yes Household members: other Details: Ex Housing: Apartment Marital status: Marital status details: but currently living with ex Number of children: 4 Number of grandchildren: 13 Highest education level completed: Associate Degree: Occupational, Technical, Vocational Program 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 Current occupational status: disabled Current occupational exposures/hazards: No Pets and animals: Yes Pets & animals: dog(s) Leisure activites: music and other Leisure activities details: walk, spend time with grandkids Sexually active: No Do you think of yourself as: Straight/Heterosexual Current gender identity: Female Ana/Muslim: Presybeterian Special ana needs: No Agree to transfusion: Yes Female Reproductive History: Para: 4 Spontaneous abortions: No Physical Exam Const: COMMON NORMALS: no acute distress, average body habitus, patient oriented x3, no limitations, healthy appearing, alert and well nourished GENERAL APPEARANCE: cooperative ORIENTATION/CONSCIOUSNESS: Yes awake, Yes oriented to person, Yes oriented to place and Yes oriented to time Chest: COMMONS NORMALS: normal inspection of the chest and normal palpation of entire chest wall Resp: COMMON NORMALS: normal respiratory effort AUSCULTATION: wheezes (faint; scattered ) Cardio: COMMON NORMALS: regular rate and regular rhythm RATE: regular rate RHYTHM: regular rhythm GI: COMMON NORMALS: Normal to inspection, nondistended, normoactive bowel sounds present, Soft to palpation, non-tender and no masses PALPATION: Yes Soft to palpation Back/Pelvis: COMMON NORMALS: thoracic and lumbar spine normal to inspection, no thoracic nor lumbar tenderness and thoraco-lumbar ROM normal Extremity: COMMON NORMALS: full ROM, capillary refill normal, no joint enlargement and no pedal edema GENERAL: Yes normal exam except as noted RIGHT LOWER EXTREMITY: Yes lower leg (calf swelling/edema and tenderness noted) Right lower leg: Yes neurovascular exam (normal) Neuro: COMMON NORMALS: patient oriented x3, moves all extremities, no focal motor deficits and no sensory deficits noted SENSORIUM/ORIENTATION: Yes alert, Yes oriented to person, Yes oriented to place and Yes oriented to time Skin: COMMON NORMALS: no rashes or lesions noted GENERAL SKIN EXAM: no rashes or lesions noted Course Vital Signs: Vital signs: Vital Signs Pulse Rate 72 09/20/23 15:55 Respiratory Rate 16 09/20/23 15:50 Blood Pressure 132/55 09/20/23 15:20 Pulse Oximetry 94 09/20/23 15:50 Oxygen Delivery Me thod Room Air 09/20/23 15:50 MDM - Extremity (Nontraumatic) Medical Decision Making Patient here for right lower extremity swelling/calf pain and concern for DVT. Patient already has a known DVT to the leg and is currently on Eliquis. She states that she has been compliant with this medication and has not missed any doses. When asked she did feel slightly short of breath but felt this was most likely secondary to [facility] not giving her her Albuterol/Symbicort/Spiriva inhalers. She was faintly wheezy on exam. She was given albuterol here and states her shortness of breath has completely alleviated. Wheezing has now subsided as well. Her EKG showing no evidence of heart strain. She is not tachycardic or hypoxic. CXR personal interpretation normal. Spoke to Dr. Barrios in regards to her care. There is no need to repeat ultrasound at this time as it would not ultimately private branch exchange service adviser as she is already anticoagulated. I have a low suspicion for PE at this time. Patient will be allowed discharge with return precautions. Lab Data 09/20/23 15:12 09/20/23 15:12 Laboratory Results WBC 5.49 10^3/uL (3.29-11.43) 09/20/23 15:12 RBC 4.95 10^6/uL (3.85-5.65) 09/20/23 15:12 Hgb 14.70 g/dL (11.27-16.99) 09/20/23 15:12 Hct 44.4 % (36-47) 09/20/23 15:12 MCV 89.7 fl (85-98) 09/20/23 15:12 MCH 29.7 pg (27-33) 09/20/23 15:12 MCHC 33.1 g/dL (30-55) 09/20/23 15:12 RDW 12.7 % (12.1-15.1) 09/20/23 15:12 Plt Count 207 10^3/cmm (157-399) 09/20/23 15:12 MPV 9.5 fL (7.4-10.4) 09/20/23 15:12 Neut % (Auto) 49.1 % 09/20/23 15:12 Lymph % (Auto) 39.0 % 09/20/23 15:12 [place] % (Auto) 9.1 % 09/20/23 15:12 Eos % (Auto) 2.0 % 09/20/23 15:12 Baso % (Auto) 0.4 % 09/20/23 15:12 Neut # (Auto) 2.70 10^3/uL (1.8-7.7) 09/20/23 15:12 Lymph # (Auto) 2.1 10^3/uL (0.8-4.8) 09/20/23 15:12 [place] # (Auto) 0.5 10^3/uL (0.2-0.9) 09/20/23 15:12 Eos # (Auto) 0.1 10^3/uL (0.0-0.8) 09/20/23 15:12 Baso # (Auto) 0.0 10^3/uL (0.0-0.1) 09/20/23 15:12 Nucleated RBC % (auto) 0 % 09/20/23 15:12 Nucleated RBCs # 0.0 /100WBC 09/20/23 15:12 Sodium 138 mmol/L (136-145) 09/20/23 15:12 Potassium 3.6 mmol/L (3.5-5.1) 09/20/23 15:12 Chloride 100 mmol/L (98-107) 09/20/23 15:12 Carbon Dioxide 28 mmol/L (22-29) 09/20/23 15:12 Anion Gap 13.6 (5-19) 09/20/23 15:12 BUN 18 mg/dL (6-20) 09/20/23 15:12 Creatinine 1.0 mg/dL (0.5-0.9) H 09/20/23 15:12 GFR Calculation 56.9 mL/min (90-130) L 09/20/23 15:12 Glucose 124 mg/dL (65-115) H 09/20/23 15:12 Calculated Osmolality 289 mOsm/kg (285-295) 09/20/23 15:12 Calcium 9.9 mg/dL (8.5-10.5) 09/20/23 15:12 XR interpretation done by ED provider, pending radiology final review Discharge Plan Discharge Patient Disposition: Home Clinical Impression: Right leg DVT Qualifiers: Affected thrombotic vein of extremity: unspecified vein of extremity Chronicity: acute Qualified Code(s): I82.401 - Acute embolism and thrombosis of unspecified deep veins of right lower extremity COPD (chronic obstructive pulmonary disease) Qualifiers: COPD type: chronic bronchitis Chronic bronchitis type: unspecified Qualified Code(s): J42 - Unspecified chronic bronchitis Condition: Stable Prescriptions: New albuterol sulfate 90 mcg/actuation HFA aerosol inhaler 2 inh INHALATION Q4H PRN (Reason: shortness of breath or wheezing) Qty: 6.7 0RF Continued Symbicort 160-4.5 mcg/actuation HFA aerosol inhaler 2 puff inhalation BID 30 Days Qty: 10.2 0RF Spiriva Respimat 1.25 mcg/actuation mist 2 puff inhalation DAILY Qty: 4 0RF No Action (DME) Custom molded orthotics See Rx Instructions .Route .MEDSUPPLY Qty: 1 0RF Rx Instructions: As directed atorvastatin 40 mg tablet 40 mg PO DAILY 90 Days Qty: 90 1RF Combivent Respimat 20-100 mcg/actuation mist See Rx Instructions .ROUTE .COMPLEX Qty: 4 5RF Dose Instruction: TAKE ONE INHALATION BY MOUTH EVERY 4 HOURS NEEDED SHORTNESS OF BREATH OR WHEEZING Rx Instructions: TAKE ONE INHALATION BY MOUTH EVERY 4 HOURS metformin 500 mg tablet 500 mg PO BID 90 Days Qty: 180 1RF potassium chloride 10 mEq tablet extended release 10 meq PO DAILY 90 Days Qty: 90 1RF tizanidine 4 mg tablet 4 mg PO TID PRN (Reason: muscle spasticity) 30 Days Qty: 90 2RF Hold Instructions: Home Medication placed on hold at Doctor's office Eliquis 5 mg tablet 10 mg PO BID Qty: 60 2RF Rx Instructions: 2 tabs BID for 7 days, then change to 1 tab BID risperidone 120 mg suspension,extended rel syring 120 mg SUBCUT .every 4 weeks Qty: 1 0RF risperidone [Risperdal] 1 mg tablet 1 mg PO BID Qty: 60 2RF hydroxyzine pamoate [Vistaril] 25 mg capsule 25 mg PO TID PRN (Reason: anxiety) Qty: 90 2RF ibuprofen 600 mg tablet 600 mg PO TID PRN (Reason: pain) Qty: 90 0RF gabapentin 600 mg tablet 600 mg PO BID Qty: 60 2RF fluoxetine 40 mg capsule 80 mg PO QAM mirtazapine 45 mg tablet,disintegrating 45 mg PO BEDTIME Ventolin HFA 90 mcg/actuation HFA aerosol inhaler 2 inh inhalation Q6H Discharge Orders: Discharge ED (Routine); Ordered 09/20/23 Ordered By: Jacqui Bhakta Referrals: Lucrecia Rivera MD [Primary Care Provider] - Activity Restrictions/Additional Instructions: As we discussed continue taking your Eliquis for treatment of your right leg DVT. Make sure you do not miss any doses of this medication. You need to return to the emergency department for severe shortness of breath, chest pain, difficulty breathing, passing out episodes, coughing up blood, or any other concerns you may have. I have written you new prescriptions for your COPD treatment so that [facility] can begin giving these to you. Coding Level of Care Code ED Script Worker for [facility] Fwd Documented by User: Dariusz Barrios DO 09/20/23 17:00 HPI - Extremity Problem General: Chief complaint: General Medical Stated complaint: possible blood clot, right lower leg Time Seen by Provider: 09/20/23 14:56 PFSH ED PFSH: Medical History Acute depression Alcohol dependence, in remission Alcohol use disorder Allergic rhinitis Benzodiazepine use agreement exists Bipolar 1 disorder Bipolar 1 disorder, depressed, severe Bipolar disorder, current episode depressed, mild Borderline personality disorder Chronic pain Chronic post-traumatic stress disorder Chronic radicular low back pain COPD, mild Diabetes Diastolic CHF, chronic Essential hypertension Generalized anxiety disorder GERD (gastroesophageal reflux disease) Homelessness Insomnia Mixed hyperlipidemia Psychiatric care Psychiatric care Surgical History H/O tubal ligation H/O varicose vein stripping RLE H/O: hysterectomy S/P cholecystectomy Family History Sister Hypertension Cancer Family/Other Cancer Other Bipolar disorder, current episode depressed, mild Borderline personality disorder Chronic post-traumatic stress disorder Social History Smoking and tobacco/nicotine status: current every day tobacco/nicotine user cigarettes Packs smoked per day: 10 Years cigarettes smoked: 42 and e-cigarettes E-Cigarette Details: e-cigarette and with nicotine E-cig/vape details: 5000 vapes last about 2 months Quit status (tobacco/nicotine): considering quitting Second hand smoke exposure: Yes Alcohol intake: former Year of sobriety/quit date alcohol: 2018 Substance/Drug Use: current Substance/Drug use frequency: daily Other substance/drug use details: on supervised probation since 08.14.23 Adopted: No Caregiver/support person: No Lives independently: Yes Household members: other Details: Ex Housing: Apartment Marital status: Marital status details: but currently living with ex Number of children: 4 Number of grandchildren: 13 Highest education level completed: Associate Degree: Occupational, Technical, Vocational Program 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 Current occupational status: disabled Current occupational exposures/hazards: No Pets and animals: Yes Pets & animals: dog(s) Leisure activites: music and other Leisure activities details: walk, spend time with grandkids Sexually active: No Do you think of yourself as: Straight/Heterosexual Current gender identity: Female Ana/Muslim: Presybeterian Special ana needs: No Agree to transfusion: Yes Course Vital Signs: Vital signs: Vital Signs Pulse Rate 72 09/20/23 15:55 Respiratory Rate 16 09/20/23 15:50 Blood Pressure 132/55 09/20/23 15:20 Pulse Oximetry 94 09/20/23 15:50 Oxygen Delivery Me thod Room Air 09/20/23 15:50 MDM - Extremity (Nontraumatic) Medical Decision Making Patient here for right lower extremity swelling/calf pain and concern for DVT. Patient already has a known DVT to the leg and is currently on Eliquis. She states that she has been compliant with this medication and has not missed any doses. When asked she did feel slightly short of breath but felt this was most likely secondary to [facility] not giving her her Albuterol/Symbicort/Spiriva inhalers. She was faintly wheezy on exam. She was given albuterol here and states her shortness of breath has completely alleviated. Wheezing has now subsided as well. Her EKG showing no evidence of heart strain. She is not tachycardic or hypoxic. CXR personal interpretation normal. Spoke to Dr. Barrios in regards to her care. There is no need to repeat ultrasound at this time as it would not ultimately private branch exchange service adviser as she is already anticoagulated. I have a low suspicion for PE at this time. Patient will be allowed discharge with return precautions. Chart reviewed and patient discussed with midlevel. Agree with assessment and plan. Medical Records I reviewed the patient's medical records. Lab Data I reviewed the patient's lab results. 09/20/23 15:12 09/20/23 15:12 Laboratory Results WBC 5.49 10^3/uL (3.29-11.43) 09/20/23 15:12 RBC 4.95 10^6/uL (3.85-5.65) 09/20/23 15:12 Hgb 14.70 g/dL (11.27-16.99) 09/20/23 15:12 Hct 44.4 % (36-47) 09/20/23 15:12 MCV 89.7 fl (85-98) 09/20/23 15:12 MCH 29.7 pg (27-33) 09/20/23 15:12 MCHC 33.1 g/dL (30-55) 09/20/23 15:12 RDW 12.7 % (12.1-15.1) 09/20/23 15:12 Plt Count 207 10^3/cmm (157-399) 09/20/23 15:12 MPV 9.5 fL (7.4-10.4) 09/20/23 15:12 Neut % (Auto) 49.1 % 09/20/23 15:12 Lymph % (Auto) 39.0 % 09/20/23 15:12 [place] % (Auto) 9.1 % 09/20/23 15:12 Eos % (Auto) 2.0 % 09/20/23 15:12 Baso % (Auto) 0.4 % 09/20/23 15:12 Neut # (Auto) 2.70 10^3/uL (1.8-7.7) 09/20/23 15:12 Lymph # (Auto) 2.1 10^3/uL (0.8-4.8) 09/20/23 15:12 [place] # (Auto) 0.5 10^3/uL (0.2-0.9) 09/20/23 15:12 Eos # (Auto) 0.1 10^3/uL (0.0-0.8) 09/20/23 15:12 Baso # (Auto) 0.0 10^3/uL (0.0-0.1) 09/20/23 15:12 Nucleated RBC % (auto) 0 % 09/20/23 15:12 Nucleated RBCs # 0.0 /100WBC 09/20/23 15:12 Sodium 138 mmol/L (136-145) 09/20/23 15:12 Potassium 3.6 mmol/L (3.5-5.1) 09/20/23 15:12 Chloride 100 mmol/L (98-107) 09/20/23 15:12 Carbon Dioxide 28 mmol/L (22-29) 09/20/23 15:12 Anion Gap 13.6 (5-19) 09/20/23 15:12 BUN 18 mg/dL (6-20) 09/20/23 15:12 Creatinine 1.0 mg/dL (0.5-0.9) H 09/20/23 15:12 GFR Calculation 56.9 mL/min (90-130) L 09/20/23 15:12 Glucose 124 mg/dL (65-115) H 09/20/23 15:12 Calculated Osmolality 289 mOsm/kg (285-295) 09/20/23 15:12 Calcium 9.9 mg/dL (8.5-10.5) 09/20/23 15:12 Discharge Plan Discharge Patient Disposition: Home Clinical Impression: Right leg DVT Qualifiers: Affected thrombotic vein of extremity: unspecified vein of extremity Chronicity: acute Qualified Code(s): I82.401 - Acute embolism and thrombosis of unspecified deep veins of right lower extremity COPD (chronic obstructive pulmonary disease) Qualifiers: COPD type: chronic bronchitis Chronic bronchitis type: unspecified Qualified Code(s): J42 - Unspecified chronic bronchitis Condition: Stable Prescriptions: New albuterol sulfate 90 mcg/actuation HFA aerosol inhaler 2 inh INHALATION Q4H PRN (Reason: shortness of breath or wheezing) Qty: 6.7 0RF Continued Symbicort 160-4.5 mcg/actuation HFA aerosol inhaler 2 puff inhalation BID 30 Days Qty: 10.2 0RF Spiriva Respimat 1.25 mcg/actuation mist 2 puff inhalation DAILY Qty: 4 0RF No Action (DME) Custom molded orthotics See Rx Instructions .Route .MEDSUPPLY Qty: 1 0RF Rx Instructions: As directed atorvastatin 40 mg tablet 40 mg PO DAILY 90 Days Qty: 90 1RF Combivent Respimat 20-100 mcg/actuation mist See Rx Instructions .ROUTE .COMPLEX Qty: 4 5RF Dose Instruction: TAKE ONE INHALATION BY MOUTH EVERY 4 HOURS NEEDED SHORTNESS OF BREATH OR WHEEZING Rx Instructions: TAKE ONE INHALATION BY MOUTH EVERY 4 HOURS metformin 500 mg tablet 500 mg PO BID 90 Days Qty: 180 1RF potassium chloride 10 mEq tablet extended release 10 meq PO DAILY 90 Days Qty: 90 1RF tizanidine 4 mg tablet 4 mg PO TID PRN (Reason: muscle spasticity) 30 Days Qty: 90 2RF Hold Instructions: Home Medication placed on hold at Doctor's office Eliquis 5 mg tablet 10 mg PO BID Qty: 60 2RF Rx Instructions: 2 tabs BID for 7 days, then change to 1 tab BID risperidone 120 mg suspension,extended rel syring 120 mg SUBCUT .every 4 weeks Qty: 1 0RF risperidone [Risperdal] 1 mg tablet 1 mg PO BID Qty: 60 2RF hydroxyzine pamoate [Vistaril] 25 mg capsule 25 mg PO TID PRN (Reason: anxiety) Qty: 90 2RF ibuprofen 600 mg tablet 600 mg PO TID PRN (Reason: pain) Qty: 90 0RF gabapentin 600 mg tablet 600 mg PO BID Qty: 60 2RF fluoxetine 40 mg capsule 80 mg PO QAM mirtazapine 45 mg tablet,disintegrating 45 mg PO BEDTIME Ventolin HFA 90 mcg/actuation HFA aerosol inhaler 2 inh inhalation Q6H Discharge Orders: Discharge ED (Routine); Ordered 09/20/23 Ordered By: Jacqui Bhakta Referrals: Lucrecia Rivera MD [Primary Care Provider] - Activity Restrictions/Additional Instructions: As we discussed continue taking your Eliquis for treatment of your right leg DVT. Make sure you do not miss any doses of this medication. You need to return to the emergency department for severe shortness of breath, chest pain, difficulty breathing, passing out episodes, coughing up blood, or any other concerns you may have. I have written you new prescriptions for your COPD treatment so that [facility] can begin giving these to you. Coding Level of Care Code ED Script Worker for Ketty [place]
--- NOTE | 2023-09-20 15:40 | ECG_ITS ---
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 Measurements Intervals [place] Rate: 67 P: 63 ID: [id number] QRS: 39 QRSD: 84 T: 77 QT: 436 QTc: 461 Interpretive Statements SINUS RHYTHM Compared to ECG 02/13/2019 17:53:26 Prolonged QT interval no longer present Electronically Signed On 09-20-2023 16:44:01 CDT by Jaclyn Vazquez M.D. [id number]
[2023-09-20 15:47] LABS: Anion Gap 13.6 (5-19); Blood Urea Nitrogen 18 mg/dL (6-20); Calcium 9.9 mg/dL (8.5-10.5); Carbon Dioxide 28 mmol/L (22-29); Chloride 100 mmol/L (98-107); Glomerular Filtration Rate 56.9 mL/min (90-130); Glucose 124 mg/dL (65-115); Osmolality Calculated 289 mOsm/kg (285-295); Potassium 3.6 mmol/L (3.5-5.1); Sodium 138 mmol/L (136-145)
[2023-09-20 15:50] VITALS: PULSE 70; RESP 16; O2SAT 94
[2023-09-20] MEDS: albuterol 2.5 mg/3 mL Neb INHALATION (15:52)
[2023-09-20 15:55] VITALS: PULSE 72
== END 2023-09-20 16:39 | disposition home or self-care (01) ==
PROVIDERS: Family Medicine; Emergency Provider Physician Assistant; PCP Family Medicine
DX: I82.401 Acute embolism and thrombosis of unspecified deep veins of right lower extremity (principal); Z79.01 Long term (current) use of anticoagulants; F17.210 Nicotine dependence, cigarettes, uncomplicated; F17.290 Nicotine dependence, other tobacco product, uncomplicated; J44.89 Other specified chronic obstructive pulmonary disease; E11.9 Type 2 diabetes mellitus without complications; I11.0 Hypertensive heart disease with heart failure; I50.30 Unspecified diastolic (congestive) heart failure; E78.2 Mixed hyperlipidemia
CPT/HCPCS: 36415; 71045; 80048; 85025; 93005; 94640; 99285; J7613

== ENCOUNTER 2023-11-14 10:36 | Outpatient (CLI) | payer MEDICARE, MEDICAID, SELFPAY ==
[2023-09-18 16:41] VITALS: BP 129/71; BMI 29.8
--- NOTE | 2023-11-14 11:15 | CT_ITS ---
WS: [id number] LDCT LUNG CANCER SCREENING TECHNIQUE: Noncontrast CT of the chest with coronal and sagittal reformatted images. CLINICAL INFORMATION: Z12.2 - Encounter for screening for malignant neoplasm of... COMPARISON: None. DLP: 83.51 mGy.cm DIvol: Mean CTDIvol: 1.90 (mGy) All CT scans at [facility] use at least one of these dose optimization techniques: automat ed exposure control; mA and/or kV adjustment per patient size (includes targeted exams where dose is matched to clinical indication); or iterative reconstruction. FINDINGS: No suspicious pulmonary parenchymal opacities. Normal caliber thoracic aorta. Aortic calcification. No mediastinal or hilar lymphadenopathy. No axil rj lymphadenopathy. Cholecystectomy clips. Adrenal glands are normal. Normal GE junction. Mild thoracic curve. Hypertroph ic changes thoracic spine. Mild thoracic kyphosis. IMPRESSION: CT/CT lung screening [id number] LUNG-RADS: 1-Negative FOLLOW UP: 12 Month: Continue annual screening with LDCT
== END 2023-11-14 10:37 | disposition home or self-care (01) ==
PROVIDERS: PCP Family Medicine; Visit Provider Family Medicine
DX: Z12.2 Encounter for screening for malignant neoplasm of respiratory organs (principal); F17.210 Nicotine dependence, cigarettes, uncomplicated
CPT/HCPCS: 71271

== ENCOUNTER → 2024-03-10 13:33 | Outpatient (BNVA) | payer MEDICAID, SELFPAY ==
[2023-09-18 16:41] VITALS: BP 129/71; BMI 29.8
== END ==
PROVIDERS: PCP Family Medicine; Visit Provider Family Medicine
DX: E11.9 Type 2 diabetes mellitus without complications (principal); J30.9 Allergic rhinitis, unspecified; G45.9 Transient cerebral ischemic attack, unspecified; I10 Essential (primary) hypertension; Z68.31 Body mass index [BMI] 31.0-31.9, adult; J30.89 Other allergic rhinitis
CPT/HCPCS: 80048; 83036

== ENCOUNTER → 2024-09-04 09:51 | Outpatient (BNVA) | payer OTHER, SELFPAY ==
[2023-09-18 16:41] VITALS: BP 129/71; BMI 29.8
== END ==
PROVIDERS: PCP Family Medicine; Referring Provider Psychiatry & Neurology Psychiatry; Visit Provider Psychiatry & Neurology Psychiatry
DX: Z79.899 Other long term (current) drug therapy (principal)
CPT/HCPCS: 80061; 83036

== ENCOUNTER → 2024-09-10 13:16 | Outpatient (BNVA) | payer MEDICARE, SELFPAY ==
[2023-09-18 16:41] VITALS: BP 129/71; BMI 29.8
== END ==
PROVIDERS: PCP Family Medicine; Referring Provider Family Medicine; Visit Provider Family Medicine
DX: M16.12 Unilateral primary osteoarthritis, left hip (principal); M25.552 Pain in left hip
CPT/HCPCS: 73502

== ENCOUNTER → 2025-01-08 10:37 | Outpatient (BNVA) | payer MEDICARE, SELFPAY ==
[2024-09-12 11:29] VITALS: BP 143/88; BMI 26.3
== END ==
PROVIDERS: PCP Family Medicine; Visit Provider Family Medicine
DX: E11.9 Type 2 diabetes mellitus without complications (principal); I50.32 Chronic diastolic (congestive) heart failure; J44.9 Chronic obstructive pulmonary disease, unspecified; I10 Essential (primary) hypertension
CPT/HCPCS: 80053; 83036; 85025

== ENCOUNTER → 2025-02-10 15:36 | Outpatient (BNVA) | payer MEDICARE, SELFPAY ==
[2024-09-12 11:29] VITALS: BP 143/88; BMI 26.3
== END ==
PROVIDERS: PCP Family Medicine; Visit Provider Family Medicine
DX: R55 Syncope and collapse (principal); Z79.899 Other long term (current) drug therapy; F19.91 Other psychoactive substance use, unspecified, in remission
CPT/HCPCS: 80307

== ENCOUNTER → 2025-03-02 13:36 | Outpatient (BNVA) | payer MEDICARE, MEDICAID, SELFPAY ==
[2024-09-12 11:29] VITALS: BP 143/88; BMI 26.3
== END ==
PROVIDERS: PCP Family Medicine; Visit Provider Family Medicine
DX: R68.89 Other general symptoms and signs (principal)
CPT/HCPCS: 87400

== ENCOUNTER → 2025-03-13 14:27 | Outpatient (BNVA) | payer MEDICARE, SELFPAY ==
[2024-09-12 11:29] VITALS: BP 143/88; BMI 26.3
== END ==
PROVIDERS: PCP Family Medicine; Referring Provider Family Medicine; Visit Provider Specialist
DX: R55 Syncope and collapse (principal)
CPT/HCPCS: 95816

== ENCOUNTER → 2025-04-30 11:25 | Outpatient (BNVA) | payer MEDICARE, SELFPAY ==
[2024-09-12 11:29] VITALS: BP 143/88; BMI 26.3
== END ==
PROVIDERS: PCP Family Medicine; Referring Provider Family Medicine; Visit Provider Psychiatry & Neurology Neurology
DX: R55 Syncope and collapse (principal); G45.9 Transient cerebral ischemic attack, unspecified; Z79.899 Other long term (current) drug therapy; I10 Essential (primary) hypertension; G40.909 Epilepsy, unspecified, not intractable, without status epilepticus
CPT/HCPCS: 36415; 82306; 82607; 82746; 83735; 83921; 84439; 84443; 84481; 99203

== ENCOUNTER 2025-05-18 07:07 | Outpatient (CLI) | payer MEDICARE, MEDICAID, SELFPAY ==
[2024-09-12 11:29] VITALS: BP 143/88; BMI 26.3
--- NOTE | 2025-05-18 08:30 | MR_ITS ---
WS: [id number] MRI HEAD WITH CONTRAST TECHNIQUE: Sagittal T1, T2 axial, T2 axial FLAIR, axial susceptibility weighted imaging, axial diffusion weighted images, and coronal T2 images were obtained. Pre and post-T1 axial and post T1 coronal images. ADC and FSPGR images. CLINICAL INFORMATION: R55 - Syncope and collapse COMPARISON: None. FINDINGS: No evidence of restricted diffusion to suggest acute ischemia. Ventricular system and basal cisterns are patent. Mild small vessel changes. Mild parenchymal volume loss. Tiny chronic lacunar infarcts LEFT cerebellum. Normal vascular flow voids at the skull base. No extra-axial fluid collections. Parana clara sinuses are well aerated. No hemosiderin on the susceptibility weighted images. Slight encephalomalacia in the inferior RIGHT greater than LEFT frontal lobes likely due to prior trauma. No abnormal gadolinium enhancement. Benign venous angioma LEFT frontal lobe. MR/MR head wo/w con [id number] IMPRESSION: 1. Mild small vessel changes. Mild parenchymal volume loss. 2. Tiny chronic lacunar infarcts LEFT cerebellum. 3. Slight encephalomalacia in the RIGHT greater than LEFT inferior frontal lob es likely due to prior trauma. 4. No abnormal gadolinium enhancement.
--- NOTE | 2025-05-18 09:15 | MR_ITS ---
WS: [id number] MRA CAROTID WITHOUT AND WITH GADOLINIUM ENHANCEMENT TECHNIQUE: Axial 2-D TOF and gadolinium bolus images obtained with axial images and axial, sagittal, and coronal 2-D reformatted images. CLINICAL INFORMATION: R55 - Syncope and collapse COMPARISON: None. FINDINGS: RIGHT : RIGHT common carotid artery is patent. No significant RIGHT ICA stenosis. RIGHT ICA is patent to the skull base. LEFT: LEFT common carotid artery is patent. No significant LEFT ICA stenosis. LEFT ICA is patent to the skull base. LEFT dominant vertebral artery. RIGHT vertebral artery is patent. Proximal basilar artery is patent. Proximal subclavian arteries are patent. MR/MR angio neck w con* [id number] IMPRESSION: Normal neck MRA.
--- NOTE | 2025-05-18 10:00 | MR_ITS ---
WS: [id number] MRA HEAD TECHNIQUE: Axial 3-D TOF images obtained with axial images and axial, sagittal, and coronal 2-D reformatted images. CLINICAL INFORMATION: R55 - Syncope and collapse COMPARISON: None. FINDINGS: Distal vertebrals are patent. Basilar artery is patent. Normal vascularity to the [employer] territory bilaterally. Both ICAs are patent at the skull base. Patent anterior communicating artery. Normal vascularity to the MAHNAZ and MCA territories bilaterally. No evidence of proximal flow-limiting stenosis. MR/MR angio head wo con [id number] IMPRESSION: Normal intracranial MRA.
[2025-05-18] MEDS: gadobenate dimeglumine 20 mL vial IV (12:44)
== END 2025-05-18 07:08 | disposition home or self-care (01) ==
PROVIDERS: PCP Family Medicine; Visit Provider Psychiatry & Neurology Neurology
DX: R55 Syncope and collapse (principal); G45.9 Transient cerebral ischemic attack, unspecified; R56.9 Unspecified convulsions
CPT/HCPCS: 70544; 70548; 70553

== ENCOUNTER → 2025-06-18 06:58 | Outpatient (BNVA) | payer MEDICARE, MEDICAID, SELFPAY ==
[2024-09-12 11:29] VITALS: BP 143/88; BMI 26.3
== END ==
PROVIDERS: PCP Family Medicine; Referring Provider Psychiatry & Neurology Neurology; Visit Provider Psychiatry & Neurology Neurology
DX: R56.9 Unspecified convulsions (principal)
CPT/HCPCS: 95813

== ENCOUNTER → 2025-06-29 12:33 | Outpatient (BNVA) | payer MEDICARE, MEDICAID, SELFPAY ==
[2024-09-12 11:29] VITALS: BP 143/88; BMI 26.3
== END ==
PROVIDERS: PCP Family Medicine; Visit Provider Internal Medicine
DX: R42 Dizziness and giddiness (principal); R00.2 Palpitations; R07.9 Chest pain, unspecified; E78.2 Mixed hyperlipidemia; I10 Essential (primary) hypertension; Z79.01 Long term (current) use of anticoagulants; Z79.82 Long term (current) use of aspirin; F17.290 Nicotine dependence, other tobacco product, uncomplicated; Z86.718 Personal history of other venous thrombosis and embolism
CPT/HCPCS: 93005; 99204

== ENCOUNTER 2025-07-30 14:10 | Outpatient (CLI) | payer MEDICARE, MEDICAID, SELFPAY ==
[2024-09-12 11:29] VITALS: BP 143/88; BMI 26.3
--- NOTE | 2025-07-30 15:00 | USCV_ITS ---
Melvi Jeronimo Age: 59 Gender: F : 1965 Exam Date: 07/30/2025 15:00 Ordering Phys: Iam Armstrong M.D ([email or web address]) Technologist: SHARON Exam Location: [facility] [place] Indication: CP, SoB BP: 134 / 88 HR: 56 Rhythm: Sinus Technical Quality: Adequate MEASUREMENTS (Male / Female) Normal Values 2D ECHO LV Diastolic Diameter PLAX 4.4 cm 4.2 - 5.9 / 3.9 - 5.3 cm IVS Diastolic Thickness 0.9 cm 0.6 - 1.0 / 0.6 - 0.9 cm IVS Systolic Thickness 1.5 cm LVPW Diastolic Thickness 1.1 cm 0.6 - 1.0 / 0.6 - 0.9 cm LVPW Systolic Thickness 1.4 cm LVOT Diameter 2.0 cm LV Ejection Fraction 2D Teich 58.3 % LV Ejection Fraction MOD 4C 50.8 % LV Ejection Fraction MOD 2C 68.7 % LV Ejection Fraction 2C AL 69.2 % LA Diameter 2.7 cm RA Systolic Volume 4C AL 23.1 ml RA Systolic Volume 4C MOD 21.5 ml LA Sys Volume AL 35.1 cm cubed LA Sys Volume Index AL 17.9 cm cubed/m squared Aorta at Sinotubular Diameter 2.6 cm IVC Diameter 1.5 cm M-MODE LA Ao Ratio MM 1.0 AV Cusp Separation MM 1.1 cm DOPPLER AV Peak Velocity 138.0 cm/s LVOT Peak Velocity 106.0 cm/s AV Area Cont Eq vti 2.7 cm squared AV Area Cont Eq pk 2.5 cm squared MV Peak Velocity 71.0 cm/s MV Area PHT 3.8 cm squared Mitral E to A Ratio 0.6 TR Peak Velocity 71.0 cm/s TR Peak Gradient 2.0 mmHg TV Peak E Velocity 50.0 cm/s PV Peak Velocity 69.0 cm/s FINDINGS Left Ventricle Normal left ventricular size, systolic function and wall thickness, with no regional wall motion abnormalities. Left ventricular ejection fraction is estimated at 55 %. Grade I/IV diastolic dysfunction (abnormal relaxation filling pattern), normal to mildly elevated filling pressures. Right Ventricle The right ventricle is normal in size and function. Right Atrium The right atrium is normal in size. Left Atrium The left atrium is normal in size. Mitral Valve Moderate mitral annular calcification. No mitral valve stenosis. Trace mitral valve regurgitation. Aortic Valve Severe aortic valve calcification. Mild aortic valve stenosis, mean gradient 4 mmHg, NORIS 2.7 cm squared. Trace aortic valve regurgitation. Tricuspid Valve Structurally normal tricuspid valve without significant stenosis or regurgitation. Pulmonary artery systolic pressure is normal. Pulmonic Valve Structurally normal pulmonic valve without significant stenosis. There is no pulmonic regurgitation. Pericardium Normal pericardium without effusion. Aorta Normal ascending aorta dimension. IVC The inferior vena cava appears normal. CONCLUSIONS Normal left ventricular size, systolic function and wall thickness, with no regional wall motion abnormalities. Left ventricular ejection fraction is estimated at 55 %. Grade I/IV diastolic dysfunction (abnormal relaxation filling pattern), normal to mildly elevated filling pressures. Moderate mitral annular calcification. No mitral valve stenosis. Trace mitral valve regurgitation. Severe aortic valve calcification. Mild aortic valve stenosis, mean gradient 4 mmHg, NORIS 2.7 cm squared. Trace aortic valve regurgitation. There is no pericardial effusion. Right atrial pressure is around 5 mm of mercury. Wilman Lara MD (Electronically Signed) Final Date: 31 July 2025 12:01 S
== END 2025-07-30 14:11 | disposition home or self-care (01) ==
LOC: RAD 14:10
PROVIDERS: PCP Family Medicine; Visit Provider Internal Medicine
DX: R07.9 Chest pain, unspecified (principal); R06.02 Shortness of breath; I08.0 Rheumatic disorders of both mitral and aortic valves; I35.0 Nonrheumatic aortic (valve) stenosis
CPT/HCPCS: 93306

== ENCOUNTER → 2025-08-11 11:21 | Outpatient (BNVA) | payer MEDICARE, SELFPAY ==
[2024-09-12 11:29] VITALS: BP 143/88; BMI 26.3
== END ==
PROVIDERS: PCP Family Medicine; Visit Provider Family Medicine
DX: E11.9 Type 2 diabetes mellitus without complications (principal); Z79.899 Other long term (current) drug therapy; F15.91 Other stimulant use, unspecified, in remission; E55.9 Vitamin D deficiency, unspecified; R53.83 Other fatigue
CPT/HCPCS: 80048; 80061; 80307; 82652; 83036

== ENCOUNTER → 2025-10-14 14:43 | Outpatient (BNVA) | payer MEDICARE, MEDICAID, SELFPAY ==
[2025-08-14 13:54] VITALS: BP 108/68; BMI 30.6
== END ==
PROVIDERS: PCP Family Medicine; Visit Provider Internal Medicine
DX: I82.401 Acute embolism and thrombosis of unspecified deep veins of right lower extremity (principal); I10 Essential (primary) hypertension; F17.290 Nicotine dependence, other tobacco product, uncomplicated
CPT/HCPCS: 99214

== ENCOUNTER → 2025-10-20 09:52 | Outpatient (BNVA) | payer MEDICARE, MEDICAID, SELFPAY ==
[2025-08-14 13:54] VITALS: BP 108/68; BMI 30.6
== END ==
PROVIDERS: PCP Family Medicine; Visit Provider Surgery
DX: Z12.11 Encounter for screening for malignant neoplasm of colon (principal)
CPT/HCPCS: 99024; 99204

== ENCOUNTER 2025-11-12 13:12 | Outpatient (CLI) | payer MEDICARE, MEDICAID, SELFPAY ==
[2025-08-14 13:54] VITALS: BP 108/68; BMI 30.6
--- NOTE | 2025-11-12 13:30 | CT_ITS ---
WS: [id number] LDCT LUNG CANCER SCREENING TECHNIQUE: Noncontrast CT of the chest with coronal and sagittal reformatted images. CLINICAL INFORMATION: F17.210 - Nicotine dependence, cigarettes, uncomplicated COMPARISON: 2022 DLP: 67.90 mGy.cm DIvol: Mean CTDIvol: 1.40 (mGy) All CT scans at [facility] use at least one of these dose optimization techniques: automated exposure control; mA and/or kV adjustment per patient size (includes targeted exams where dose is matched to clinical indication); or iterative reconstruction. FINDINGS: No new suspicious pulmonary parenchymal opacities. Chronic emphysematous changes. Normal caliber thoracic aorta. Aortic calcification. Mild coronary calcification. No mediastinal or hilar lymphadenopathy. No axillary lymphadenopathy. Cholecystectomy clips. Adrenal glands are normal. Normal GE junction. Mild thoracic curve. Hypertrophic changes thoracic spine. Mild thoracic kyphosis. CT/CT lung screening [id number] IMPRESSION: LUNG-RADS: 1-Negative FOLLOW UP: 12 Month: Continue annual screening with LDCT
== END 2025-11-12 13:13 | disposition home or self-care (01) ==
LOC: RAD 13:12
PROVIDERS: Family Provider Family Medicine; PCP Family Medicine; Visit Provider Family Medicine
DX: Z12.2 Encounter for screening for malignant neoplasm of respiratory organs (principal); F17.210 Nicotine dependence, cigarettes, uncomplicated; I35.8 Other nonrheumatic aortic valve disorders; I25.10 Atherosclerotic heart disease of native coronary artery without angina pectoris; Z90.49 Acquired absence of other specified parts of digestive tract; Z96.89 Presence of other specified functional implants; M40.204 Unspecified kyphosis, thoracic region; M46.94 Unspecified inflammatory spondylopathy, thoracic region
CPT/HCPCS: 71271

== ENCOUNTER 2025-11-24 08:13 | Day surgery (SDC) | payer MEDICARE, MEDICAID, SELFPAY ==
[2025-08-14 13:54] VITALS: BP 108/68; BMI 30.6
[2025-11-24 08:20] VITALS: BP 122/85; PULSE 74; RESP 18; TEMP 36.1; O2SAT 95; BMI 29.2
--- NOTE | 2025-11-24 08:43 | W.PM.OPSFHP ---
Same Day Surgery H&P Indication for Procedure/HPI DATE OF PROCEDURE: November 24, 2025 CHIEF COMPLAINT/INDICATIONFOR SURGICAL PROCEDURE: need for screening colonoscopy PREOP DIAGNOSIS: need for screening colonoscopy PLANNED PROCEDURE: Operation Date: 11/24/25 10:20 Proposed Procedures p Colonoscopy 01501 G0105 Z12.11(Not Applicable) - Danie Davis MD Medications/Allergies* Home Medications ?Medication ?Instructions ?Recorded ?Confirmed ?Type magnesium carb,citrate,oxide 300 mg PO DAILY 10/12/25 11/23/25 History fluoxetine 40 mg capsule 40 mg PO BID 11/16/25 11/23/25 History gabapentin 600 mg tablet 600 mg PO BID 11/16/25 11/23/25 History ipratropium 20 mcg-albuterol 100 20 puff inhalation DAILY 11/16/25 11/23/25 History mcg/actuation mist for inhalation (Combivent Respimat) Allergies/Adverse Reactions Allergy/AdvReac Type Severity Reaction Status Date / Time butorphanol (From Stadol) Allergy Unknown Unknown Verified 11/23/25 13:20 tramadol Allergy Unknown UNKNOWN Verified 11/23/25 13:20 prednisone AdvReac Intermediate rash Verified 11/23/25 13:20 clear tape Allergy Unknown Uncoded 11/23/25 13:20 Pertinent History/Comorbid Conditions* Medical History (Updated 08/11/25 @ 15:54 by Ellyn Flores) Homelessness Generalized anxiety disorder Insomnia Alcohol use disorder Bipolar 1 disorder Bipolar 1 disorder, depressed, severe Psychiatric care Benzodiazepine use agreement exists Psychiatric care Diastolic CHF, chronic Diabetes Chronic post-traumatic stress disorder Alcohol dependence, in remission Borderline personality disorder Bipolar disorder, current episode depressed, mild Allergic rhinitis Essential hypertension COPD, mild Mixed hyperlipidemia GERD (gastroesophageal reflux disease) Acute depression Chronic pain Chronic radicular low back pain Surgical History (Updated 09/08/21 @ 11:17 by Shola Wing MD) H/O varicose vein stripping RLE H/O: hysterectomy S/P cholecystectomy H/O tubal ligation Family History (Updated 10/15/22 @ 17:30 by Cece Christopher MS, [facility] [place]) Borderline personality disorder Chronic post-traumatic stress disorder Bipolar disorder, current episode depressed, mild Cancer Sister Family/Other Hypertension Sister Social History Smoking and tobacco/nicotine status: current some day tobacco/nicotine user cigarettes Packs smoked per day: 10 Years cigarettes smoked: 43 and e-cigarettes E-Cigarette Details: e-cigarette and with nicotine E-cig/vape details: 1500 vapes last about 2 months Quit status (tobacco/nicotine): considering quitting Second hand smoke exposure: Yes Alcohol intake: former Year of sobriety/quit date alcohol: 2018 Substance/Drug Use: current Substance/Drug use frequency: daily Other substance/drug use details: uses gummies on supervised probation until the end of 2024 Adopted: No Caregiver/support person: No Lives independently: Yes Household members: other Details: Ex Housing: Apartment Marital status: Marital status details: but currently living with ex Number of children: 4 Number of grandchildren: 13 Highest education level completed: Associate Degree: Occupational, Technical, Vocational Program 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
--- NOTE | 2025-11-24 09:21 | P.ANESASSM_ITS ---
Pre-Anesthetic Assessment Height/Weight: Height 1.63 m Weight 77.111 kg Temp Pulse Resp BP Pulse Ox O2 Del Method 97.0 F L 74 18 122/85 95 Room Air 11/24/25 08:20 11/24/25 08:20 11/24/25 08:20 11/24/25 08:20 11/24/25 08:20 11/24/25 08:20 Preop Diagnosis: need for screening colonoscopy Operation Date: 11/24/25 10:20 Proposed Procedures p Colonoscopy 05336 G0105 Z12.11(Not Applicable) - Danie Davis MD Was Beta Alexandre taken within 24 hours: N/A Was Clonidine taken within 24 hours: N/A Last intake: Intake Last Liquid Date 11/23/25 Last Liquid Time 12:00 Last Solid Date 11/22/25 Last Solid Time 22:00 Last Intake: 09:24 Social Tobacco and No alcohol Exam alert and oriented x 3 Airway Submandibular: within normal limits Cervical ROM: within normal limits Mallampati: Class II Dentition: other Comments: Comments: no teeth History/ROS No significant history except as noted Pulmonary Chronic Obstructive Pulmonary Disease CV/HEM Congestive Heart Failure Chronic Renal Failure Hepatic None reported GI None reported Metabolic Diabetes Mellitus and Hyperlipidemia [facility] [place] Lower Back Pain Neuropsych Cerebrovascular Accident and Seizure Anesthetic Plan ASA status: 3 Anesthesia: Anesthesia Evaluation Risk of > 500 ml blood loss (7ml/kg in children): No Medications/Allergies Home Medications ?Medication ?Instructions ?Recorded ?Confirmed ?Last Taken ?Type Custom molded orthotics #1 ea 08/23/21 11/23/25 Unkn own Rx aspirin 81 mg tablet,delayed 81 mg PO DAILY 90 days #9 0 tabs 09/09/24 11/23/25 11/21/25 Rx release ondansetron 4 mg disintegrating 4 mg PO BID PRN nausea and 03/02/25 11/23/25 11/16/25 Rx tablet vomiting #20 tabs hydroxyzine pamoate 50 mg capsule 50 mg PO TID PRN anx iety #90 caps 04/07/25 11/23/25 11/16/25 Rx cholecalciferol (vitamin D3) 1,250 50,000 unit PO Q7D #12 caps 05/01/25 11/23/25 11/16/25 Rx mcg (50,000 unit) capsule mirtazapine 45 mg disintegrating 45 mg PO BEDTIME 30 d ays #30 tabs 09/11/25 11/23/25 11/16/25 Rx tablet naltrexone 50 mg tablet 50 mg PO DAILY 30 days #30 t abs 09/11/25 11/23/25 11/16/25 Rx magnesium carb,citrate,oxide 300 mg PO DAILY 10/12/25 11/23/25 11/16/25 History risperidone 2 mg tablet 2 mg PO BID #60 tabs 5 11/23/25 11/24/25 06:30 Rx albuterol sulfate 90 mcg/actuation 2 inh inhalation Q4 H PRN shortness 11/10/25 11/23/25 11/16/25 Rx aerosol inhaler of breath or wheezing #6.7 g marianna apixaban 5 mg tablet (Eliquis) 5 mg PO BID 30 days #60 tabs 11/10/25 11/23/25 11/19/25 Rx atorvastatin 40 mg tablet 40 mg PO DAILY 90 days #90 t abs 11/10/25 11/23/25 11/16/25 Rx budesonide-formoterol HFA 160 2 puff inhalation BID 30 days 11/10/25 11/23/25 11/16/25 Rx mcg-4.5 mcg/actuation aerosol #10.2 grams inhaler (Breyna) fluticasone propionate 50 1 spray intranasal Q12H #15. 8 mL 11/10/25 11/23/25 11/16/25 Rx mcg/actuation nasal spray,suspension furosemide 20 mg tablet 20 mg PO QAM 90 days #90 tab s 11/10/25 11/23/25 11/16/25 Rx potassium chloride 10 mEq 10 meq PO DAILY 90 days #90 tabs 11/10/25 11/23/25 11/16/25 Rx tablet,extended release tirzepatide 10 mg/0.5 mL 10 mg (0.5 mL) SUBCUT .WEEKL Y #2 mL 11/10/25 11/23/25 11/16/25 Rx subcutaneous pen injector (Cirilo) tizanidine 4 mg tablet 4 mg PO TID PRN muscle spast icity 11/10/25 11/23/25 11/16/25 Rx 30 days #90 tabs umeclidinium 62.5 mcg/actuation 1 inh inhalation Q24H #30 ea 11/10/25 11/23/25 11/16/25 Rx blister powder for inhalation (Incruse Ellipta) fluoxetine 40 mg capsule 40 mg PO BID 11/16/2511/24/25 06:30 History gabapentin 600 mg tablet 600 mg PO BID 11/16/2511/2311/16/25 History ipratropium 20 mcg-albuterol 100 20 puff inhalation DA RENNY 11/16/25 11/23/25 11/16/25 History mcg/actuation mist for inhalation (Combivent Respimat) Allergies Allergy/AdvReac Type Severity Reaction Status Date / Time butorphanol (From Stadol) Allergy Unknown Unknown Verified 11/23/25 13:20 tramadol Allergy Unknown UNKNOWN Verified 11/23/25 13:20 prednisone AdvReac Intermediate rash Verified 11/23/25 13:20 clear tape Allergy Unknown Uncoded 11/23/25 13:20 Current Medications Generic Name Dose Route Start Last Admin Trade Name Freq PRN Reason Stop Dose Admin Sodium Chloride 1,000 mls @ 15 mls/hr 11/24/25 08:19 11/24/25 08:47 Sodium Chloride 0.9% IV 11/25/25 08:18 15 mls/hr .Q24H PRN Administration COLONOSCOPY FLUIDS PFSH Anesthesia Medical History Homelessness Generalized anxiety disorder Insomnia Alcohol use disorder Bipolar 1 disorder Bipolar 1 disorder, depressed, severe Psychiatric care Benzodiazepine use agreement exists Psychiatric care Diastolic CHF, chronic Diabetes Chronic post-traumatic stress disorder Alcohol dependence, in remission Borderline personality disorder Bipolar disorder, current episode depressed, mild Allergic rhinitis Essential hypertension COPD, mild Mixed hyperlipidemia GERD (gastroesophageal reflux disease) Acute depression Chronic pain Chronic radicular low back pain Surgical History H/O varicose vein stripping RLE H/O: hysterectomy S/P cholecystectomy H/O tubal ligation Family History Sister Hypertension Cancer Family/Other Cancer Other Bipolar disorder, current episode depressed, mild Borderline personality disorder Chronic post-traumatic stress disorder Social History Smoking and tobacco/nicotine status: current some day tobacco/nicotine user cigarettes Packs smoked per day: 10 Years cigarettes smoked: 43 and e-cigarettes E-Cigarette Details: e-cigarette and with nicotine E-cig/vape details: 1500 vapes last about 2 months Quit status (tobacco/nicotine): considering quitting Second hand smoke exposure: Yes Alcohol intake: former Year of sobriety/quit date alcohol: 2017 Substance/Drug Use: current Substance/Drug use frequency: daily Other substance/drug use details: uses gummies on supervised probation until the end of 2024 Adopted: No Caregiver/support person: No Lives independently: Yes Household members: other Details: Ex Housing: Apartment Marital status: Marital status details: but currently living with ex Number of children: 4 Number of grandchildren: 13 Highest education level completed: Associate Degree: Occupational, Technical, Vocational Program 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
[2025-11-24 10:02] VITALS: BP 119/65; PULSE 76; RESP 16; TEMP 36.2; O2SAT 100
[2025-11-24 10:16] VITALS: BP 137/74; PULSE 78; RESP 16; O2SAT 98
--- NOTE | 2025-11-24 10:50 | ANE.PACU2 ---
Inpatient post-anesthesia follow up: Airway intact: Yes Vital signs: Temperature 97.2 F Pulse Rate 78 Respiratory Rate 16 Blood Pressure 137/74 Pulse Oximetry 98 Oxygen Delivery Me thod Nasal Cannula Oxygen Flow Rate 2 Fraction of Inspir ed Oxygen Hydration adequate: Yes Nausea and vomiting: No Pain level: 1 Mental status: Baseline
== END 2025-11-24 10:50 | disposition home or self-care (01) ==
PROVIDERS: PCP Family Medicine; Visit Provider Surgery
PROC: 0DJD8ZZ Inspection of Lower Intestinal Tract, Via Natural or Artificial Opening Endoscopic (ICD-10-PCS; CPT 45378; principal; 2025-11-24 10:20)
DX: Z12.11 Encounter for screening for malignant neoplasm of colon (principal); K21.9 Gastro-esophageal reflux disease without esophagitis; E78.2 Mixed hyperlipidemia; J44.9 Chronic obstructive pulmonary disease, unspecified; F43.12 Post-traumatic stress disorder, chronic; E11.9 Type 2 diabetes mellitus without complications; F31.9 Bipolar disorder, unspecified; F17.210 Nicotine dependence, cigarettes, uncomplicated; I11.0 Hypertensive heart disease with heart failure; I50.32 Chronic diastolic (congestive) heart failure; E78.5 Hyperlipidemia, unspecified; Z79.82 Long term (current) use of aspirin
CPT/HCPCS: 36416; 45378; 82962; J2250; J2704; J7030